=== PATIENT | female | born 1965 | race Asian ===

== ENCOUNTER 2017-07-22 10:24 | Inpatient (IN) | payer OTHER ==
[~2017-07-22] VITALS: Ht 160 cm; Wt 56.9 kg
[2017-07-22] VITALS (29 sets, daily range): BP systolic 76–102; BP diastolic 50–78; TEMP 98–98.1; Ht 160 cm; Wt 56.9 kg
--- NOTE | 2017-07-22 10:00 | NUR ---
REPORT RECEIVED FROM MARCIN HERNANDEZ LPN FROM [facility] [place] AT THIS TIME
--- NOTE | 2017-07-22 10:13 | NUR ---
PT ARRIVED TO ICU BED 3 VIA BED AT THIS TIME PER U STAFF. PT IS LETHARGIC AND DISORIENTED. PT IS ON 50% O2 PER VENTI MASK. RESPIRATIONS ARE RAPID. PT DOES NOT FOLLOW COMMANDS. LUNG SOUNDS ARE CLEAR THROUGHOUT ON THE RIGHT SIDE. CRACKLES ARE NOTED TO THE LEFT SIDE THROUGHOUT. IRREGULAR HEART SOUNDS ARE NOTED UPON AUSCULTATION. HEART RATE IS 133 PER SUPERVISOR WOUND. BOWEL SOUNDS ARE PRESENT IN ALL 4 QUADRANTS. THERE IS A 22G IV NOTED TO THE RAC. IV IS INTACT AND PATENT. IV DRESSING IS CLEAN, DRY, AND INTACT. THERE IS NO EDEMA NOTED TO THE BILATERAL LOWER EXTREMITIES. PEDAL PULSES ARE PRESENT AND EQUAL BILATERALLY. UPPER AND LOWER EXTREMETIES ARE COOL TO THE TOUCH. BED WAS LOCKED AND PLACED IN LOWEST POSITION WITH SIDE RAILS UP X3.
--- NOTE | 2017-07-22 10:20 | NUR ---
CONNOR DAVIS, RT AT BEDSIDE PLACING PT ON BIPAP AT THIS TIME. PT'S O2 SAT INCREASED TO 84% AT THIS TIME.
[~2017-07-22 10:24] MED LIST: BENZTROPINE0.5 MG PO; BENZTROPINE2 MG PO; BISACODYL5 M1 PO; CLON0.5T36 PO; DIPH12.521 PO; DIVA500T2 PO; HALO10TA5 PO; LEXAPRO20 MG PO; MAGNSUS68 PO; MEDR150I3 IM; MEGE40TA32 PO; NUDEXTA PO; RISP1TAB PO; RISP25IN IM; SENEXON-S1 TAB PO; SUCR1SUS PO
--- NOTE | 2017-07-22 10:27 | NUR ---
DR. SPANN AT BEDSIDE TO SEE PT.
--- NOTE | 2017-07-22 13:25 | NUR ---
IV FLUIDS STARTED. RESP RATE COMING DOWN 38 , 36 MIN SAT IMPROVED TO 92%. PT KEEPS PULLING AT MASK KEEP REMINDING HER TO LEAVE IT ON. MONITOR CLOSELT LABS DRAW. PT RECIEVED ANTIBOTICS
--- NOTE | 2017-07-22 14:09 | NUR ---
RECIEVED IV ANTIBOTICS CONTINUES TO RECIEVE IV BOLUS. HR 120 SAT 95% RESP 40, B/P 80/62 CONTINUE TO MONITOR CLOSELY. CONTINUES ON BIPAP
--- NOTE | 2017-07-22 15:11 | NUR ---
13F GARCÍA INSERTED AT THIS TIME X2 ATTEMPTS USING STERILE TECHNIQUE. BALLOON WITH 10 MLS OF NS. 160 CC'S OF JENA COLORED URINE NOTED TO GARCÍA BAG. SAMPLE COLLECTED AT THIS TIME AND TAKEN TO LAB. PT TOLERATED WELL. WILL CONTINUE TO MONITOR.
[2017-07-22] MEDS ORDERED: METAMUCIL0.52 GM OR (15:21)
[2017-07-22] MEDS ORDERED: PANTOPRAZOLE 40MG TA PO (15:21)
[2017-07-22] MEDS ORDERED: DOCU100C10 PO (15:26)
[2017-07-22] MEDS ORDERED: TYLENOL325 MG OR ×2 (15:28→15:30)
[2017-07-22] MEDS ORDERED: ALUMSUS6 PO (15:28)
[2017-07-22] MEDS ORDERED: LANTISEPTI2 EX (15:29)
[2017-07-22] MEDS ORDERED: OLAN10INJ IM (15:30)
--- NOTE | 2017-07-22 16:17 | NUR ---
PT RESTING QUIETLY WITH EYES CLOSED. NAD NOTED. PT RESPONDS TO PAINFUL STIMULI ONLY. BIPAP STILL IN USE AT THIS TIME. O2 SAT 94% AND RESPIRATORY RATE 32/MIN AT THIS TIME. WILL CONTINUE TO CLOSELY MONITOR.
--- NOTE | 2017-07-22 16:37 | NUR ---
APPEARS TO BE IMPROVING NOT PULLING AT MASK SO MUCH. RESTING EASIER WEARING BIPAP. SAT 95% HR DOWN TO 121, B/P 99/71. WILL RECHECK ABG.
--- NOTE | 2017-07-22 21:00 | NUR ---
RESP AT BEDSIDE, PT PULLING AT BIPAP SOME, ENCOURAGED NOT TO PULL MASK, PT DOES OPEN EYES BRIEFLY AND LOOK AT STAFF, NO DISTRESS NOTED, IV INTACT, GARCÍA PATENT, WILL MONITOR, RAILS UP, BED IN LOW POSITION.
[2017-07-23] VITALS (25 sets, daily range): BP systolic 75–112; BP diastolic 33–88; TEMP 97–99
--- NOTE | 2017-07-23 00:02 | NUR ---
RESTING WITH EYES CLOSED, NO DISTRESS NOTED, RESP RATE ELEVATED 32, IV INTACT, FEET ELEVATED ON PILLOW, BIPAP IN USE NOTE PT DOES AROUSE BRIEFLY AT TIMES AND PULL AT BIPAP, REASSURED PT AND ENCOURAGED NOT TO PULL AT BIPAP, WILL MONITOR, RAILS UP, BED IN LOW POSITION, GARCÍA PATENT DRAINING TO BEDSIDE WITH APPROX 150ML URINE NOTED.
--- NOTE | 2017-07-23 05:38 | NUR ---
RESTING WITH EYES CLOSED, NO S/S OF PAIN OR DISTRESS NOTED, RESP RATE 28, BIPAP 16/7 FIO2 100%, 14F GARCÍA PATENT DRAINING TO BEDSIDE, IV INTACT WITH FLUID ONGOING. RESP NOW AT BEDSIDE WITH ABG RESULTS. DECREASED FIO2 TO 50% AT THIS TIME. WILL CONTINUE TO MONITOR CLOSELY, RAILS UP X3, BED IN LOW POSITION. FEET ELEVATED ON PILLOW.
[2017-07-23 05:44] LABS: POTASSIUM 3.2 mmol/L (3.6-5.2)
[2017-07-23 06:29] LABS: PLATELET COUNT 116 K/uL (152-353)
--- NOTE | 2017-07-23 07:00 | NUR ---
PT RESTING QUIETLY ON BIPAP 16/7 & 50% O2. O2 SATS 94% GARCÍA TO BSD WITH MED YELL URINE 10 ML'S.
--- NOTE | 2017-07-23 09:48 | NUR ---
SHANKAR BRENNAN MACHINIST TOOL AND DIE IN TO SEE PT,REVIEWING LABS & CXR,PT RESTLESS.
--- NOTE | 2017-07-23 10:37 | NUR ---
PT RESTLESS & KICKING FEET,PULLING AT BIPAP MASK, PT CHANGED TO NC/3L/RESP.O2 SATS 94%,FACE BATHED,MOUTHCARE. PT FRETFUL & MUMBLING UNABLE TO VOICE NEEDS. TURNED & REPOSITIONED FOR COMFORT.
--- NOTE | 2017-07-23 11:00 | NUR ---
DR TEJADA IN WITH SHANKAR GONZALEZ CONCRETE CRAFTSMAN MAKING ROUNDS,ASSESSING PT.RR RATE 30 REMAINS SAME WHEN ON BIPAP.
--- NOTE | 2017-07-23 11:14 | NUR ---
PT CALM,RESTING WITH EYES CLOSED.
--- NOTE | 2017-07-23 14:21 | NUR ---
LABS CALLED TO SHANKAR GARCIA. NEW ORDERS.
--- NOTE | 2017-07-23 14:31 | NUR ---
PT VERY RESTLESS,MUMBLING & TWISTING & TURNING SELF IN BED,FRETFUL BUT UNABLE TO VOICE NEEDS, TRIED TO SIP SM AMT H2O,COUGHED AFTERWARD. SHANKAR GONZALEZ SHEET ROCK INSTALLATION HELPER NOTIFIED,NEW ORDERS,ATIVAN 0.5 MG SIVP.
--- NOTE | 2017-07-23 15:00 | NUR ---
PT RESTLESS,O2 SAT 89/90%.O2 INCREASED TO 4L/NC,RR RATE 30. PT CALMER.
--- NOTE | 2017-07-23 17:00 | NUR ---
RT IN TO SEE PT,NEBS & SMART VEST IN PROGRESS,O2 SATS 89/90%.PT PLACED BACK ON BIPAP 16/7& 50% O2.
--- NOTE | 2017-07-23 18:55 | NUR ---
URINARY OUTPUT [address] FELTON JAIN,NEW ORDERF TO INCREASE NS TO 125ML/HR.
--- NOTE | 2017-07-23 22:30 | NUR ---
PT REPOSITIONED IN BED. LINENS WERE STRAIGHTENED.
[2017-07-24] VITALS (24 sets, daily range): BP systolic 95–144; BP diastolic 55–88; TEMP 97–98.7
--- NOTE | 2017-07-24 03:25 | NUR ---
PT CONTINUES TO REST WITH EYES CLOSED. PT WEARING BIPAP ORDERED. GARCÍA CATH INTACT DRAINING YELLOW URINE. VITAL SIGNS STABLE.
--- NOTE | 2017-07-24 05:06 | NUR ---
PCXR WAS DONE.
[2017-07-24 06:31] LABS: PLATELET COUNT 116 K/uL (152-353)
[2017-07-24 06:40] LABS: POTASSIUM 2.6 mmol/L (3.6-5.2)
--- NOTE | 2017-07-24 08:30 | NUR ---
PT RESTING ON BIPAP SAT 97% NO ACUTE DISTRESS.
--- NOTE | 2017-07-24 10:00 | NUR ---
SHANKAR GONZALEZ VISITED RECIEVED ORDERS AM MEDS PULLED. WILL TRY CLEAR LIQUIDS. PT UP IN BED CONTINUES ON BIPAP.
--- NOTE | 2017-07-24 12:00 | NUR ---
PT OFF BIPAP, TRIED SIPS CLEAR LIQUIDS UNABLE TO SWALLOW. PO MEDS HELD AND RETURNED TO OMNICELL (UNOPENED). PT REPIN BED INC OF SMALL AMOUNT STOOL. WILL GIVE BATH HOB UP. HAD VISITOR FROM [place] [employer] THIS AM LEFT CONTACT INFO.
--- NOTE | 2017-07-24 14:39 | NUR ---
PLACED YANKAUER SUCTION AT BEDSIDE FOR SECRETIONS NEEDED. AM,WEB UI DEVELOPER
--- NOTE | 2017-07-24 14:39 | NUR ---
CONTINUE OFF BIPAP, HOB UP sAT 98% ON 4 L NC. HUMIDIFIED. PT NPO. PT TRYING TO COUGH, SOUNDS LIKE SHE MIGHT BE MOVING SOME SECRETIONS.
--- NOTE | 2017-07-24 14:47 | NUR ---
PT OFF BIPAP AT THIS TIME. SPO2 99% ON 5LPM VIA NC WITH HUMIDITY. NO RESPIRATORY DISTRESS NOTED. PATIENT IS AGITATED.
--- NOTE | 2017-07-24 15:10 | NUR ---
CONTINUES ON O2 AT 4L NC SAT 99% PT CRYING OUT AT TIMES, COARSE BREATH SOUND OCC. COUGH UNABLE TO COUGH ANYTHING UP. RECIEVED BREATHING TX.
--- NOTE | 2017-07-24 15:12 | NUR ---
DECREASED TO 4LPM POST TREATMENT. SPO2-98% HR 106
--- NOTE | 2017-07-24 16:30 | NUR ---
SAT 100% O2 TURN DOWN TO 3L NC. PT RECIEVED BED BATH BED CHANGE SKIN CARE APPEARS TO BE RESTING EASIER. NO CRYING OUT. IV FLUIDS CONTINUE ORDERED. ANTIBOTICS INFUSING ORDERED.
--- NOTE | 2017-07-24 16:31 | NUR ---
WEANED O2 TO 3LPM AT THIS TIME VIA NC. SPO2-100%,HR-86 PT RESTING ON LEFT SIDE AT THIS TIME. AM,STAFF WRITER
--- NOTE | 2017-07-24 18:22 | NUR ---
PT AWAKE CRYING OUT AT TIMES. DOES NOT APPEAR TO BE IN PAIN . CHECKED EARLIER IV FLUIDS UP TO 125 HR MONITOR URINE OUTPUT. VOIDED 325 ML TODAY. WILL MONITOR CLOSELY. REPOSITIONED IN BED.
--- NOTE | 2017-07-24 22:28 | NUR ---
1930- RECEIVED PT WITH HER EYES CLOSED, SHE CRIES AT TIMES, MOANS, WHICH IS REPORTEDLY HER USUAL BEHAVIOUR. HEAD TO TOE ASSSESMENT COMPLETE. PT REPOSITIONED IN BED TO HER RIGHT SIDE. PILLOW PLACED BETWEEN LOWER EXTREMITIES FOR SKIN INTEGRITY AND COMFORT. SH
--- NOTE | 2017-07-24 22:32 | NUR ---
2100-PT IS NPO, CANNOT SWALLOW AT THIS TIME, SO SOME OF SCHEDULED MEDS NOT GIVEN, SEE EMAR. IVF'S INFUSING WITHOUT DIFFICULTY. PT CONTINUES TO CRY OUT AT TIMES. NO DISTRESS NOTED. SHE DOES NOT LOOK TO BE IN PAIN, JUST ACTS RESTLESS. SH
--- NOTE | 2017-07-24 22:36 | NUR ---
2129- PT IS GETTING AGITATED, SHE HAS ON THE RESPIRATORY SMART VEST AND IS NOT LIKING IT AT ALL. SHE IS GETTING A BREATHING TX ALSO. ATIVAN 0.5 MG IV SLOW PUSH GIVEN. WILL RE-ASSESS PT FOR RELIEF OF ANXIETY AND REDUCTION OF HEART RATE WHICH IS 115 AT THIS TIME. ALSO, PT HAD A SMALL AMOUNT OF LIGHT BROWN, SOFT BM PRESENT. PT CLEANED, ADULT DIAPER PLACED AND REPOSITIONED. SH
--- NOTE | 2017-07-24 22:40 | NUR ---
2200 - PT IS MORE CALM, HAS ON HER BIPAP FOR THE NIGHT. NO DISTRESS NOTED. HR HAS DECREASED TO 103. SH
--- NOTE | 2017-07-24 22:41 | NUR ---
2235-HR IS 94,95/MIN. GARCÍA HAS SLIGHTLY DARK URINE PRESENT, IN TUBING IT IS CLOUDY. IN THE LAST HOUR, SHE PUT OUT 36 CC OF URINE. SH
--- NOTE | 2017-07-24 23:55 | NUR ---
2355- PT RESTLESS, ATIVAN 0.5 MG IV SLOW PUSH GIVEN. 8 CC OF URINE MEASURED FOR THE HOUR. SH
[2017-07-25] VITALS (16 sets, daily range): BP systolic 94–149; BP diastolic 50–90; TEMP 97.5–98.6
--- NOTE | 2017-07-25 02:22 | NUR ---
0100-PT HAS BEEN CALM AND IS SLEEPING SINCE ADMIN OF LAST ATIVAN 0.5 MG IV, ABOUT AN HOUR AGO. PT'S URINE OUTPUT CONTINUES TO BE VERY SLOW, BUT HAS BEEN LOW PER REPORT FROM DAYSHIFT. AWARE. SH
--- NOTE | 2017-07-25 02:25 | NUR ---
0200 NO DISTRESS NOTED. PT CONTINUES TO SLEEP WELL WITH BIPAP ON. SH
--- NOTE | 2017-07-25 03:40 | NUR ---
0340- PT CONTINUES SLEEPING PEACEFULLY WHILE ON BIPAP, SHE SATS 100 %, HR IS 83, BP 113/61. R-32/MIN AT THIS TIME. URINE OUT PUT ONLY CC FOR THIS PAST HOUR. SH
--- NOTE | 2017-07-25 04:25 | NUR ---
0425- PT'S HR DOWN TO 81. SHE IS SLEEPING WELL, NO CHANGES NOTED. CONT. TO WEAR BIPAP. SH.
[2017-07-25 05:31] LABS: PLATELET COUNT 104 K/uL (152-353)
--- NOTE | 2017-07-25 05:51 | NUR ---
0550 - PT RESTLESS, ATIVAN 0.5 MG IV SLOW PUSH GIVEN. PT TOLERATES WELL. NO BM NOTES IN ADULT DIAPER. PT PUTTING OUT MORE URINE AT THIS TIME. GARCÍA BAG EMPTIED, ALL TOGETHER 250 CC OUT. PT HAS BEEN SHOWING SATS OF 99 AND 100 %. MORTGAGE LOAN ORIGINATOR WILL CONTINUE TO MONITOR. SH.
--- NOTE | 2017-07-25 06:33 | NUR ---
0635-PT IS CALM AND SLEEPING AT THIS TIME. RESPIRATORY CAME A LITTLE EARLIER, OBTAINED AN ABG AND EXCHANGED PTS BIPAP FOR HER NC AT 3 LM. ALSO, PT HAD A CHEST XRAY EARLIER. SHE TOLERATED EACH, WELL. NO DISTRESS NOTED AT THIS TIME. SH
[2017-07-25 06:50] LABS: POTASSIUM 2.6 mmol/L (3.6-5.2)
--- NOTE | 2017-07-25 08:15 | NUR ---
RESPIRATORY AT BEDSIDE.
--- NOTE | 2017-07-25 08:25 | NUR ---
DR. TEJADA HERE TO EXAMINE PATIENT. NEW ORDERS RECEIVED.
--- NOTE | 2017-07-25 09:00 | NUR ---
RECIEVD ORDERS PHONE CALL TO PERLA MILA [phone] TO GET CONSENT FOR TX. RECIEVED NAME AND NUMBER OF SHANDRA QUICK PT'S LEGAL GUARDIAN FOR THE STATE.
--- NOTE | 2017-07-25 09:15 | NUR ---
CALLED TO MRS QUICK REPORT PT CONDITION AND NEW ORDERS. WILL NEED TO GET STATEMENT/ INFORMATION NEEDED FOR MEDICAL TREATMENT/PROCEDURE MEDICAL CONSENT SIGNED BY TWO PHYSICIANS. NOEMI FROM OR ASSIST WITH GETTING CONSENT.
--- NOTE | 2017-07-25 11:45 | NUR ---
HAD TO HAVE CONSENT FORM FAXED TO HOSPITAL. FOUR COPIES NEEDED TO BE FILLED OUT WITH DR HERNANDEZ AND DR TEJADA SIGNING. FORMS SENT BACK TO MRS QUICK. WAITING TO RECIEVE CONSENT. PT TURNED AND REPOSITIONED IN BED CRYING OUT. HOB UP. RESP HERE PT RECIEVED BREATHING TX. PT COUGHING NON PRODUCTIVE COUGH. UNABLE TO BRING UP SECRETIONS. SUCTION TO MOUTH. REMOVED THICK PHLEM. ATTEMPT TO START SECOND IV UNSUCCESSFUL AT THIS TIME. WILL TRY WHEN PT A LITTLE MORE CALM.
--- NOTE | 2017-07-25 12:00 | NUR ---
CRYING OUT RESTLESS RECIEVED ATIVAN 0.5 IVP ORDERED.
--- NOTE | 2017-07-25 13:00 | NUR ---
REPORT URINE OUTPUT TO SHANKAR GONZALEZ PEDIATRIC INTENSIVE PHYSICIAN. CALLED TO OR SPOKE WITH NOEMI WAITING TO GET CONSENT FROM MRS QUICK. MRS QUICK CALLED BACK AND SPOKE WITH NOEMI. HAVE NOT RECIEVED CONSENT YET. RESP DEPT HERE PLACED PT ON SHAKEY VEST, CRYING OUT RESTLESS. REPOSITIONED IN BED.
--- NOTE | 2017-07-25 14:15 | NUR ---
SHANKAR GONZALEZ LAB PACK CHEMIST HERE TO CHECK PT STATUS. PT CONTINUES CRYING OUT. RECIEVED ORDERS. PT ASSISTED WITH BATH. NOTED PT TRYING TO HAVE BM. TRIES TO PUSH STOOL OUT. ASSISTED BY YENI DALEY RN CHECKED FOR IMPACTION. PT CONSTIPATED REMOVED SMALL AMOUT HARD BALLS. EXPLAINED PROCEDURE TO PT. PT CRYING OUT. PT RECIEVED FLEETS ENEMA, FINISHED BATH. RECIEVED LASIX AND ATIVAN 0.5 MG FOR AGITATION. RECIEVED CALL FROM NOEMI IN OR. HAVE NOT HEARD FROM MRS QUICK, STILL WAITING CONSENT.
--- NOTE | 2017-07-25 15:30 | NUR ---
RESPIRATORY AT BEDSIDE TO PLACE PATIENT ON BIPAP. BIPAP NOT TOLERATED WELL. RESPIRATORY RATE INCREASED TO 60. AND HEART RATE INCREASED TO 114-120. BIPAP REMOVED AND PATIENT RETURNED TO O2 @ 3L VIA NC. RESPIRATORY RATE THEN DECREASED TO 46. JOSE DEL CID NOTIFIED. NEW ORDERS GIVEN FOR ATIVAN 1MG X1 DOSE NOW AND STAT ABG.
--- NOTE | 2017-07-25 16:00 | NUR ---
SHANKAR GONZALEZ, ASSISTANT STATISTICIAN AT BEDSIDE TO ASSESS PATIENT STATUS. ABG REPORTED. ORDERS GIVEN TO INCREASE O2 TO 4L. CURRENT O2 SAT IS 98%
--- NOTE | 2017-07-25 16:02 | NUR ---
ABG OBTAINED PER JOSE POLK. VERBAL ORDER GIVEN TO GO UP TO 4LPM POST ABG RESULTS FROM JOSE PLOK. SPO2-97% HR-105
--- NOTE | 2017-07-25 16:50 | NUR ---
PT APPEARS TO BE RESTING EASIER. SAT 100% ON 4L NC. NOT CRYING OUT, MOANING MUCH. IV FLUIDS CONTINUE ORDERED. LASIX EFFECTIVE VOIDING LARGE AMOUNTS. HOB UP.
--- NOTE | 2017-07-25 17:58 | NUR ---
MRS QUICK CALLED BACK REPORT THAT SHE NEEDS SECOND SIGNATURE ON MEDICAL CONSENT FORM FOR CTA OF CHEST. WENT TO ER TO REVIEW WITH DR SPANN. DR SPANN AT MEDICAL STAFF MEETING. WILL CALL BACK AND SEND CONSENT WHEN SIGNATURE OBTAINED.
--- NOTE | 2017-07-25 18:31 | NUR ---
CONSENT SIGNED BY DR SPANN EMAILED TO [facility].
--- NOTE | 2017-07-25 18:32 | NUR ---
PT APPEARS TO BE RESTING MUCH EASIER. REPORT TO ONCOMING SHIFT.
--- NOTE | 2017-07-25 20:10 | NUR ---
PT RESTING WITH EYES CLOSED, NO S/S OF PAIN OR DISTRESS NOTED, IV INTACT TO R FA WITH NO PROBLEMS NOTED TO SITE, GARCÍA PATENT DRAINING TO BEDSIDE, RESP RATE NONLABORED, WILL MONITOR, RAILS UP X3, BED IN LOW POSITION.
--- NOTE | 2017-07-25 22:32 | NUR ---
PT'S O2 SAT STAYING AT 87-89% ON NC AT 4LPM, RESPIRATORY NOTIFIED AND PT PUT ON VENTI MASK WITH FIO2 OF 50%. O2 SAT NOW 92%. IV INTACT TO R FA, GARCÍA PATENT DRAINING TO BEDSIDE, FEET ELEVATED ON PILLOW, RESP RATE NONLABORED BUT REMAINS FAST. WILL CONTINUE TO MONITOR CLOSELY, RAILS UP X3, BED IN LOW POSITION, HOB REMAINS ELEVATED.
[2017-07-26] VITALS (21 sets, daily range): BP systolic 93–157; BP diastolic 55–95; TEMP 97.5–99
--- NOTE | 2017-07-26 01:16 | NUR ---
PT SUCTIONED WITH YANKAUER, NOTE THICK YELLOW SPUTUM. MOUTH CARE COMPLETED AND LIPS MOISTURIZED, FEET ELEVATED ON PILLOW, HOB REMAINS ELEVATED, IV INTACT WITH FLUID ONGOING, RESP RATE NONLABORED, COUGH NOTED, GARCÍA PATENT DRAINING TO BEDSIDE, REPOSITIONED, WILL MONITOR, RAILS UP, BED IN LOW POSITION.
--- NOTE | 2017-07-26 04:00 | NUR ---
PT AWAKE BUT HAS EYES CLOSED, SEEMS RESTLESS AND FROWNS AT TIMES, MOVING LEGS AND ARMS AROUND, MOANING/CRYING OUT. WILL OBTAIN ORDER FOR SOMETHING FOR PAIN SINCE PT IS NPO AND CAN NOT TAKE HER PO MEDS FOR PAIN. 22G IV INTACT WITH FLUID ONGOING TO R FA, VENTI MASK IN USE, GARCÍA PATENT DRAINING TO BEDSIDE, FEET ELEVATED ON PILLOW, PT REPOSITIONED TO L SIDE, WILL MONITOR, RAILS UP X3, BED IN LOW POSITION.
--- NOTE | 2017-07-26 04:14 | NUR ---
NEW ORDER FOR TYLENOL 650MG RECTAL X 1 DOSE FOR PAIN. T.O. R&V DR. SPANN/CELINE BLANCA RN.
--- NOTE | 2017-07-26 05:04 | NUR ---
PT RESTING QUIETLY WITH EYES CLOSED, NO S/S OF PAIN OR DISTRESS NOTED, 22G IV INTACT TO R FA WITH D5 ONGOING AND 20G IV LOCK INTACT TO L WRIST, GARCÍA PATENT DRAINING TO BEDSIDE, RESP RATE NONLABORED, VENTI MASK IN USE, VITALS BEING MONITORED, WEIGHT TESTER IN USE, WILL MONITOR, RAILS UP X3, BED IN LOW POSITION.
[2017-07-26 05:06] LABS: PLATELET COUNT 92 K/uL (152-353)
[2017-07-26 05:15] LABS: POTASSIUM 2.9 mmol/L (3.6-5.2)
--- NOTE | 2017-07-26 06:00 | NUR ---
RESTING WITH EYES CLOSED, NO S/S OF PAIN OR DISTRESS NOTED, BOTH IV SITES INTACT, VENTI MASK IN USE, GARCÍA PATENT, FEET ELEVATED ON PILLOW, WILL MONITOR, RAILS UP, BED IN LOW POSITION.
--- NOTE | 2017-07-26 06:25 | NUR ---
MOUTH CARE COMPLETED, LIPS MOISTURIZED.
--- NOTE | 2017-07-26 08:30 | NUR ---
DR. TEJADA AND SHANKAR GONZALEZ, STOCKROOM ASSOCIATE AT BEDSIDE TO ASSESS PATIENT. UPDATE WAS GIVEN AND PATIENT LABS DISCUSSED. WE ARE WAITING ON RESPONSE FROM PATIENTS GUARDIAN IN ORDER TO PROCEED WITH BROCHOSCOPY AND CT SCAN.
--- NOTE | 2017-07-26 08:56 | NUR ---
RESPIRATORY AT BEDSIDE. PATIENT PLACED ON SMART VEST.
--- NOTE | 2017-07-26 10:00 | NUR ---
PT ALLOWED NURSE TO SUCTION BACK OF THROAT W/O BITING KAMALJIT
--- NOTE | 2017-07-26 10:13 | NUR ---
CALLED SHANDRA QUICK, LEGAL GUARDIAN, TO FOLLOW UP ON APPROVAL STATUS FOR REQUESTED CT SCANS (BRAIN AND CHEST) AND BRONCHOSCOPY. MARINE STEAM FITTER, JOANNE AMBROSIO, WAS CALLED INSTRUCTED. VOICE MAIL WAS LEFT WITH CONACT INFORMATION.
--- NOTE | 2017-07-26 10:33 | NUR ---
PT ATTEMPTING TO SCOOT DOWN IN BED.
--- NOTE | 2017-07-26 10:45 | NUR ---
BATH GIVEN AND LINEN CHANGED. POSITIONED ON BACK.
--- NOTE | 2017-07-26 11:10 | NUR ---
SHANDRA ABDELRAHMAN, LEGAL GUARDIAN WITH THE [facility], CALLED WITH APPROVAL FOR BRONCHOSCOPY, CT BRAIN W/O AND CTA CHEST W/ CONTRAST. ABDIEL ARECHIGA RN AND MYSELF WITNESSED VERBAL CONSENT.
--- NOTE | 2017-07-26 11:42 | NUR ---
RIGHT EYE 3MM AND SLUGGISH. STILL GAZING SOMEWHAT TO THE RIGHT.
--- NOTE | 2017-07-26 12:00 | NUR ---
RESPIRATORY AT BEDSIDE. BREATHING TREATMENT GIVEN AND PATIENT SUCTIONED.
--- NOTE | 2017-07-26 12:40 | NUR ---
PT TAKEN TO CT. NURSE AT BS
--- NOTE | 2017-07-26 12:55 | NUR ---
RETURNED FROM CT.
--- NOTE | 2017-07-26 13:00 | NUR ---
ELVIS DALEY CRNA IN ICU. PT WAS BEING RECONNECTED TO MONITORING LINES. ADVISED HIM THAT AN ATTEMPT HAD BEEN MADE TO CALL OR ONCE PT RETURNED TO ICU JUST MINS PRIOR
--- NOTE | 2017-07-26 13:39 | NUR ---
ELVIS DALEY CRNA AND NOEMI RN/OR HERE TO TAKE PATIENT TO OR FOR BRONCHOSCOPY.
--- NOTE | 2017-07-26 14:33 | NUR ---
RETURNED FROM OR VIA BED. NASAL TRUMPET AND NG TUBE IN PLACE. CHEST XRAY ORDERED BY OR STAFF.
--- NOTE | 2017-07-26 16:15 | NUR ---
RESPIRATORY AT BEDSIDE. CHANGED PATIENT FROM SIMPLE MASK TO NC. TOLERATING WELL O2 SAT 98-100%
--- NOTE | 2017-07-26 16:35 | NUR ---
XRAY AT BEDSIDE TO VERIFY PLACEMENT OF NG TUBE.
--- NOTE | 2017-07-26 17:44 | NUR ---
CHECKED PLACEMENT OF NG TUBE. PLACEMENT VERIFIED. 60ML WATER FLUSH GIVEN. MEDS WERE CRUCHED AND GIVEN VIA NG TUBE. 120ML 2CAL GIVEN. (DIETARY RECOMMENDED NEPRO-WILL INFORM MD OF DIETARY RECOMMENDATIONS) 60ML FLUSH AFTER FEEDING WAS COMPLETED. HEAD OF BED ELEVATED. NO COUGHING NOTED. PATIENT RESTING QUIETLY AND TOLERATED FEED WELL.
--- NOTE | 2017-07-26 18:29 | NUR ---
NBA HOSE PLACED ON BLE. CALF MEASURED AT 10.5 INCHES
--- NOTE | 2017-07-26 20:50 | NUR ---
NG TUBE PLACEMENT CHECKED. FLUSHED WITH 60ML WATER, ADX MEDICATIONS CRUSHED VIA NG TUBE, FLUSHED AFTER WITH 60ML WATER. TOLERATED WITH NO PROBLEMS. HOB REMAINS ELEVATED, WILL MONITOR CLOSELY.
--- NOTE | 2017-07-26 21:00 | NUR ---
TRYING PT OFF OF BIPAP TONIGHT TO SEE HOW SHE TOLERATES IT. PT IS DOING WELL AT THIS TIME ON 3LPM VIA NC. BIPAP AT BEDSIDE FOR PRN USE. AM,INCIDENT HANDLER
--- NOTE | 2017-07-26 22:00 | NUR ---
PT LAYING WITH EYES CLOSED BUT IS AWAKE, APPEARS UPSET/SCARED AT TIMES AND CRYING OUT. REASSURED PT, PT OPENS EYES TO STAFF CALLING HER NAME OR TOUCHING HER AT TIMES. IV SITES INTACT, RESP RATE NONLABORED BUT ELEVATED(HAS BEEN THIS WAY FOR SEVERAL DAYS), O2 AT 3LPM VIA NC, GARCÍA PATENT, DEPEND DRY, SCDs IN USE, NG TUBE INTACT TO L NARE WITH NO PROBLEMS NOTED. REPOSITIONED AND FEET ELEVATED ON PILLOW, WILL MONITOR, RAILS UP, BED IN LOW POSITION.
[2017-07-27] VITALS (24 sets, daily range): BP systolic 110–148; BP diastolic 63–88; TEMP 98–100
--- NOTE | 2017-07-27 00:08 | NUR ---
PT RESTING WITH EYES CLOSED AND NO S/S OF DISTRESS NOTED, GARCÍA PATENT DRAINING TO BEDSIDE, SCDs IN USE, O2 AT 3LPM VIA NC, RESP RATE NONLABORED, DEPEND DRY, BOTH IV SITES INTACT WITH FLUID ONGOING, NG TUBE INTACT TO L NARE, REPOSITIONED TO BACK WITH FEET ELEVATED ON PILLOW, PT APPEARS TO GET AGITATED WHEN REPOSITIONED, FROWNS AND MOANS OUT. REASSURED PT. NOW RESTING AGAIN WITH EYES CLOSED. WILL MONITOR, RAILS UP X3, BED IN LOW POSITION.
--- NOTE | 2017-07-27 02:25 | NUR ---
CONTINUES TO REST WITH EYES CLOSED, NO DISTRESS NOTED, IV SITES INTACT, O2 AT 3LPM VIA NC, RESP RATE NONLABORED BUT CONTINUES TO BE FAST 28-32, GARCÍA PATENT, SCDs IN USE, REPOSITIONED TO L SIDE WITH PILLOW BETWEEN LEGS, NG TUBE INTACT TO L NARE, MOUTH CARE PROVIDED AND LIPS MOISTURIZED. WILL CONTINUE TO MONITOR, RAILS UP X3, BED IN LOW POSITION.
--- NOTE | 2017-07-27 04:30 | NUR ---
RESTING WITH EYES CLOSED, NO S/S OF PAIN OR DISTRESS NOTED, BOTH IV SITES INTACT AND FLUID ONGOING, RESP RATE NONLABORED, O2 AT 3LPM VIA NC, GARCÍA PATENT, SCDs IN USE, NG TUBE INTACT L NARE, FEET ELEVATED ON PILLOW, REPOSITIONED TO BACK WITH HOB ELEVATED, WILL MONITOR, RAILS UP X3, BED IN LOW POSITION.
--- NOTE | 2017-07-27 06:00 | NUR ---
RESTING WITH EYES CLOSED, NO S/S OF PAIN OR DISTRESS NOTED, IV SITES INTACT, NG TUBE INTACT, GARCÍA PATENT, RESP RATE NONLABORED, O2 IN USE, FEET ELEVATED ON PILLOW, WILL MONITOR, RAILS UP, BED IN LOW POSITION.
[2017-07-27 06:24] LABS: PLATELET COUNT 63 K/uL (152-353)
--- NOTE | 2017-07-27 08:00 | NUR ---
PATIENT RESTING WITH EYES CLOSED; PATIENT MOANS AND CRIES OUT WHEN TOUCHED. PATIENT HAS NG TUBE DOWN LEFT NARE, NBA HOSE ON, 20 G L AC. AND 20 G L WRIST BOTH PATENT, FLUSHING, AND FREE OF REDNESS, SIDE RAILS UP X2, HOB ELEVATED, WILL CONTINUE TO MONITOR PATIENT, NO ACUTE DISTRESS NOTED AT THIS TIME
--- NOTE | 2017-07-27 09:25 | NUR ---
DR. LAND AT PATIENTS BEDSIDE EKG ORDERED
--- NOTE | 2017-07-27 11:30 | NUR ---
INSTILLED 60 MLS OF 2 TAMI INTO NASOGASTRIC TUBE.
--- NOTE | 2017-07-27 11:41 | NUR ---
VENTIPUNCTURE ATTEMPTED X3 FOR LABS THIRD ATTEMPT SUCCESSFUL FOR LAB DRAW
--- NOTE | 2017-07-27 15:05 | NUR ---
PATIENT CRYING OUTLOUD, RESPIRATORY THERAPY AT PATIENTS BEDSIDE FOR TREATMENTS
--- NOTE | 2017-07-27 15:55 | NUR ---
CALLED AND SPOKE TO DR. CHONG ABOUT PATIENTS X RAY REPORT. PATIENT IS USING ACCESSORY MUSCLES TO BREATHE, OXYGEN SATURATION AT 86%, ORDERED TO PUT PATIENT ON VENTI MASK AT 20% WILL CONTINUE TO MONITOR PATIENT
--- NOTE | 2017-07-27 16:20 | NUR ---
PATIENT SUCTIONED RESPIRATORY THERAPY AT PATIENTS BEDSIDE
--- NOTE | 2017-07-27 18:50 | NUR ---
DR LAND AT BEDSIDE WITH NEW ORDERS
--- NOTE | 2017-07-27 18:52 | NUR ---
RESPIRATORY DEEP SUCTIONED X 2.
[2017-07-27 20:49] LABS: PLATELET COUNT 64 K/uL (152-353)
[2017-07-27 20:55] LABS: POTASSIUM 3.8 mmol/L (3.6-5.2)
[2017-07-28] VITALS (23 sets, daily range): BP systolic 94–152; BP diastolic 50–89; TEMP 97.5–99
--- NOTE | 2017-07-28 03:47 | NUR ---
0 - BREAD BAKER BEGINS SHIFT WITH REPORT, FROM ADAM HIDALGO. PT MOANS WHEN BEING TOUCHED BY CAREGIVERS AND CRIES OUT, WHICH THE CRYING OUT IS SUPPOSEDLY HER NORMAL. SHE STOPS CRYING OUT WHEN LEFT ALONE. ASSESSMENT COMPLETE BY BREAD BAKER, PTS LUNGS SOUND VERY CONGESTED, THAT IS VERY AUDIBLED WITH AND WITHOUT STETHOSCOPE. SH
--- NOTE | 2017-07-28 04:01 | NUR ---
[id number] PTS NGT ASSESSED FOR PLACEMENT, MEDS GIVEN VIA NGT WITHOUT DIFFICULTY. HOB REMAINS UP DURING AND AFTER MEDS GIVEN. KAYLIE FROM LAB OBTAINED PTS LABS VIA VEINIPUNCTURE.SH
--- NOTE | 2017-07-28 04:04 | NUR ---
07-27-17 2230- PT IS RESTLESS AFTER MEDS GIVEN, RESP. TX'S, BEING REPOSITIONED, NO DISTRESS NOTED AT THIS TIME. NURSE LEFT HER UNCOVERED EARLIER DUE TO A TEMP OF 100.0 . SHE COOLED TO 99.0 . WILL MONITOR. SH
--- NOTE | 2017-07-28 04:09 | NUR ---
07-28-17 0000 PT BLOOD SUGARS HAVE BEEN: AT 2322 - 97,,,AT 0030,,,94,,,AT [phone]. CODING COORDINATOR WILL MONITOR. PT HAS BEEN UNABLE TO TOLERATE ANY 2 TAMI NGT FEEDING, DUE TO SOME RESIDUAL OF ABOUT 25 CC AND HER MEDS BEING GIVEN EARLIER. ALSO, PTS LAC IV IS LEAKING, WHICH HAS THE D5W INFUSING. NO GOOD IV SITE FOUND TO PLACE A NEW ONE. D5W CHANGED TO EXISTING SITE ON LEFT INNER WRIST AREA. IT FLUSHES WELL AND IS INFUSING WITHOUT PROBLEMS. WILL MONITOR. SH
--- NOTE | 2017-07-28 04:18 | NUR ---
07-28-17 0015 MEDICARE NURSE SPEAKS WITH ER / HOSPITALIST, DR. CHONG ABOUT PT NEEDING SOMETHING FOR POSSIBLE PAIN, HER RESPIRATIONS HAVE INCREASED TO 5O - 52 / MIN. RESPIRATORY HERE TO PLACE PT ON BI-PAP FROM [facility] ( 20 %). NEW MD ORDERS FOR PAIN MEDS, N & V MEDS, SEE E-MAR. ( DR. CHONG DID VISIT PT EARLIER AT BEDSIDE, SHE WAS CALM AND SLEEPING). SH
--- NOTE | 2017-07-28 04:25 | NUR ---
07-28-17129 PT HAS BEEN RESTING WELL SINCE DEMEROL AND ATIVAN GIVEN. SHE HAS BEEN CALM, HR HAS DECREASED AND BREATHING IS NOT LABORED. NOT MUCH RATTLING NOTED AT THIS TIME. SH.
--- NOTE | 2017-07-28 04:28 | NUR ---
2-24-18 2777 NOT MUCH RATTLING NOTED, PT IS CALM AND SLEEPING. SH
--- NOTE | 2017-07-28 04:35 | NUR ---
07-28-17 0430 PT IS QUIETLY SLEEING , RESP CONT TO BE ELEVATED AT 44-48/ MIN WITH ABDOMINAL MUSCLE USE. HER SPO2 IS 93 % WITH BI-PAP IN PLACE. RESPIRATORY VISITS TO CHECK ON PT REGULARLY. SH
--- NOTE | 2017-07-28 05:43 | NUR ---
I GETACHEW BLOOD GAS ON PT. AT 0510 AND MADE CHANGES TO BIPAP SETTINGS PER BLOOD GAS RESULTS. PH WAS 7.45, PCO2 WAS 48, AND PO2 WAS 49. SO I WENT FROM 16/7 FIO2 50% TO 18/8 60% AT THIS TIME.
[2017-07-28 06:16] LABS: PLATELET COUNT 60 K/uL (152-353)
[2017-07-28 06:18] LABS: POTASSIUM 4.4 mmol/L (3.6-5.2)
--- NOTE | 2017-07-28 06:42 | NUR ---
0600 - PT CONTINUES TO REST WELL SINCE HER ADMIN OF ATIVAN 0.5 MG IV SLOW PUSH AT 0500 AM. HIGH LIFT MULE OPERATOR IS WITHOLDING THE 0600 DOSE AT THIS TIME. PT IS BREATHING WITHOUT MUCH EFFORT. SHE CONTINUES USING HER ABDOMINAL MUSCLES AND SHE CONT ON THE BIPAP WITH NEW SETTINGS OF 18/8 AND 60 AFTER RESPIRATORY OBTAINED ABG RESULTS THIS AM. LABS DRAWN, RESULTS PENDING AT THIS TIME. SH
--- NOTE | 2017-07-28 07:20 | NUR ---
DR LAND IN TO SEE PT. RATE ON BIPAP INCREASED TO 20 PER RT/DR BOSS ORDER. NEW ORDERS.
--- NOTE | 2017-07-28 08:08 | NUR ---
MESSAGE LEFT FOR SHANDRA QUICK GUARDIAN WITH THE STATE TO CALL ME ABOUT CENTRAL LINE PLACEMENT. PT RESTING ,FRETFUL WHEN TOUCHED OR MOVED.GARCÍA TO BSD WITH CL YELLOW URINE.
--- NOTE | 2017-07-28 08:54 | NUR ---
CHRISTIANA QUICK CALLED BACK,REQUESTED THAT I CALL MS CARTER GONZALES FOR IMMEDIARE CONSENT IF NEEDED. RT IN AT [facility] [place] & SMART VEST. DONOHUE CHANGED TO 28/KATINA BAZZI RN.PT'S RR RATE 30-32.
--- NOTE | 2017-07-28 09:15 | NUR ---
PT FED 1 CAN 2CAL,PROTEINEX 1 BOTTLE.FLUSHED WITH H2O PER PROTOCOL.
--- NOTE | 2017-07-28 09:30 | NUR ---
IV 22G INSERTED R H X 1 STICK.
--- NOTE | 2017-07-28 10:16 | NUR ---
PHONE CALL TO JOANNE GONZALES RN/CARD MAKER. DISCUSSED DR BOSS ORDER FOR CONSULT FOR CENTRAL LINE. WILL NEED TO FILL OUT STATEMENT/INFORMATION NEEDED FOR RECOMMENDED TX/PROCEDURE & FAX BACK TO HER.
--- NOTE | 2017-07-28 10:16 | NUR ---
MESSAGE LEFT FOR CALLUM ESQUIVELWORKER TO CALL ME.
--- NOTE | 2017-07-28 10:38 | NUR ---
DR SPANN WITH BOWEN BROWN ASSISTANT WOMEN'S BASKETBALL COACH/BERNABE IN TO SEE PT.
--- NOTE | 2017-07-28 10:57 | NUR ---
PHONE CALL TO MS JOANNE GONZALES R/T CENTRAL LINE INSERTION. DR SPANN TO 'HOLD OFF ON CENTRAL LINE PLACEMENT FOR NOW'.
--- NOTE | 2017-07-28 11:11 | NUR ---
ABG RESULTS CALLED TO DR HALLIE SPANN.NO NEW ORDERS AT THIS TIME.
--- NOTE | 2017-07-28 11:18 | NUR ---
PRELIM RESP CULTURE CALLED TO DR SPANN,NEW ORDERS.
--- NOTE | 2017-07-28 12:30 | NUR ---
PT RESTING WITH EYES CLOSED.
--- NOTE | 2017-07-28 14:30 | NUR ---
LARGE LOOSE BM,PERICARE BATH,LINEN CHANGE, MOUTH CARE.
--- NOTE | 2017-07-28 16:30 | NUR ---
RESTING WITH EYES CLOSED.
--- NOTE | 2017-07-28 18:32 | NUR ---
PT WITH 275ML OUTPUT URINE.DR SPANN NOTIFIED. NEW ORDERS.
[2017-07-29] VITALS (23 sets, daily range): BP systolic 94–146; BP diastolic 51–82; TEMP 97.7–98.2
--- NOTE | 2017-07-29 00:08 | NUR ---
REPORTED TO DR. SPANN PT'S URINE OUTPUT OF 345 CC .
--- NOTE | 2017-07-29 01:39 | NUR ---
PT INCONTINENT OF BM. LARGE YELLOW LOOSE STOOL. PT WAS CLEANED AND LINENS WERE CHANGED. NO SKIN BREAKDOWN NOTED. REPOSITIONED PT TO HER RIGHT SIDE.
--- NOTE | 2017-07-29 05:13 | NUR ---
LAB AND RESP AT BEDSIDE FOR AM LABS. ABG.
--- NOTE | 2017-07-29 05:18 | NUR ---
07-28-171999 PT ASSESSMENT COMPLETE NO DISTRESS NOTED. IVF'S INFUSING INTO RIGHT HAND WITHOUT DIFFICULTY. PT IS ON BI PAP WITH SETTINGS OF 18/8 , 60 %02, 28 RR, AND 28-32 IS WHAT PT IS BREATHING. GARCÍA TO BSD CONT WITH SMALL AMT OF JENA URINE, 10 CC PRESENT. MD AWARE OF SCANT URINE OUTPUT. WILL CONT TO MONITOR PT AND REPOSITION. [id number] PT NGT TO LEFT NARES PLACEMENT CHECKED/VERIFIED. ABOUT 15 CC OF YELLOWISH, THIN RESIDUAL NOTED. NURSE ABLE TO ADMINISTER MEDS VIA NGT WITHOUT PROBLEM. PT HOB UP AND NO DISTRESS NOTED. FINGER STICK FOR BLOOD SUGAR WAS 202 JUST EARLIER, AND REGULAR INSULIN 4 UNITS SS COVERAGE PROVIDED TO RIGHT ARM SQ. PT TOLERATED ALL WELL.
--- NOTE | 2017-07-29 05:38 | NUR ---
07-28-17 2200 PT CONT TO HAVE INCREASED URINE OUTPUT AFTER LASIX ADMIN EARLIER. COLOR IS RECORDING CLERK THAN IT HAS BEEN AT BEGINNNING OF SHIFT. SHE DOES ATTEMPT TO OPEN HER EYES AT TIMES, CLOSES THEM AGAIN VERY QUICKLY. SH
--- NOTE | 2017-07-29 05:48 | NUR ---
07-29-17 0300 PT CONT TO SLEEP, HR 80'S, NSR NOTED ON MONITOR. SH 07-29-17 0545RESPIRATORY AT PTS SIDE TO OBTAIN AN ABG. PT GIVEN PRN DOSE OF ATIVAN PRIOR TO STICK. SHE TOLERATED WELL AFTER A COUPLE OF ATTEMPS TO OBTAIN BLOOD GAS. LAB PERSONNEL IN JUST EARLIER TO DRAW AM LABS. NURSE WILL HOLD ATIVAN SCHEDULED DOSE FOR 0600 SINCE SHE JUST HAD THE PRN DOSE. PT IS CALM DOING WELL. SH
--- NOTE | 2017-07-29 07:04 | NUR ---
07-29-17 0600 PT CLEANED AFTER THIRD BM, YELLOWISH BROWN, LOOSE. PT REPOSITIONED TO RIGHT SIDE FOR COMFORT AND INCREASED SKIN INTEGRITY. NO WOUNDS OR SORES NOTED.. NBA HOSE ON PT, HEELS FLOATING ON A PILLOW. PT HAS NOT OPENED EYES TONIGHT EXCEPT FOR A SECOND, THEN, CLOSES AGAIN. SHE ALSO STILL DOES NOT MOVE ANY/RESPOND TO PAIN, WHEN SHE HAS HAD LABS AND ABG'S DRAWN. SHE DOES MOAN OUT. PT IS RESTING QUIETLY AT THIS TIME. NO DISTRESS NOTED. SH
[2017-07-29 08:25] LABS: PLATELET COUNT 74 K/uL (152-353)
--- NOTE | 2017-07-29 08:45 | NUR ---
BOWEN BROWN LPN/BERNABE FOR DR HANANE JAIN IN TO CK ON PT. DISCUSSED LABS,WILL REPORT TO DR YA.
--- NOTE | 2017-07-29 10:03 | NUR ---
DR HANANE JAIN & BOWEN BROWN OUTREACH PROFESSIONAL/SCRIBE IN TO SEE PT. NEW ORDERS.
--- NOTE | 2017-07-29 10:15 | NUR ---
LAB IN FOR BLOOD DRAW. PT RESTING ON BIPAP,EYES CLOSED,OPENS EYES BRIEFLY WHEN TURNED.
--- NOTE | 2017-07-29 10:48 | NUR ---
LACTIC ACID LEVEL REPORTED TO BOWEN HATCH/BERNABE/ DR HANANE JAIN.
--- NOTE | 2017-07-29 11:03 | NUR ---
RESP CULTURE FINAL REPORT CALLED TO BWOEN BORWN LPN/BERNABE/DR YA.
--- NOTE | 2017-07-29 12:26 | NUR ---
PT WITH LARGE LOOSE YELLOW BM,PERICARE,SPONGE BATH, MOUTH CARE,LINEN CHANGE.PT MADE NOISES BRIEFLY WHEN TURNED BUT QUIETED WHEN LEFT ALONE.
--- NOTE | 2017-07-29 15:00 | NUR ---
PT RESTING WITH EYES CLOSED,RR RATE 30,O2 SAT 1005 ON BIPAP 60% O2.
--- NOTE | 2017-07-29 16:45 | NUR ---
PT WITH LOOSE YELLOW BM PERICARE.LINEN CHANGE.MOUTH CARE. PT FRETFUL WHEN TURNED & CLINCHES TEETH WHEN TRY TO DO MOUTH CARE. QUIETENS WHEN LEFT ALONE.
--- NOTE | 2017-07-29 18:00 | NUR ---
RESTING WITH EYES CLOSED.O2 SAT97%.
--- NOTE | 2017-07-29 22:02 | NUR ---
PT HAD MODERATE LOOSE MUSTARD COLORED STOOL. PT WAS CLEANED AND CLEAN CHUX APPLIED UNDER PT. NO SKIN BREAKDOWN NOTED. PT WAS PULLED UP IN BED AND REPOSITIONED TO HER LEFT SIDE.
--- NOTE | 2017-07-29 23:12 | NUR ---
1999--ASSESSMENT COMPLETE, PT RESPIRATIONS ARE 28, SPO2 100 %. PT CONTINUES ON BIPAP WITH SETTINGS CHANGED TODAY: 19/11 28 50 % (WAS 60 % LAST NIGHT). NO DISTRESS NOTED, BUT PT OPENS EYES IS MOANING , GROANING, CRYING SOMEWHAT. SHE IS ABLE TO NOD SLIGHTLY (YES) TO "ARE YOU HURTING", BUT CANNOT TELL NURSE WHERE.. DEMEROL 25 MG IVSP GIVEN FOR PAIN. WILL RE-ASSESS FOR RELIEF. PT JUST POSITIONED ONTO RIGHT SIDE. 2044--PT HAS EYES CLOSED AND IS SLEEPING WITHOUT DISTRESS NOTED. NO INDICATION OF PAIN. 2134--FINGERSTICK FOR GLUCOSE SHOWS 221. NOVOLIN R REGULAR INSULIN 4 UNITS SQ GIVEN IN R UPPER ARM SQ. 2299--PT HAS BM, YELLOW MUSTARD COLOR, SMALL AMT. CLEANED AND REPOSITIONED. PT TOLERATED MEDS VIA NGT EARLIER WITH NO PROBLEM. HAD A 10 CC RESIDUAL PRIOR TO MEDS GIVEN, PLACEMENT OF NGT WAS CHECKED. .
--- NOTE | 2017-07-29 23:46 | NUR ---
PTS. DUONEB TXS. HAVE FALLEN OFF AT 2000. SO GABRIELLA BLACKWELL RN PUT IN A NEW ORDER FOR HER 0000 TX. AND I HAD TO OVERRIDE IN THE OMNICELL TO PULL MED. PT IS STILL IN NEED OF HER DUONEB TXS. EVERY 4 HOURS SO I HAVE GIVEN HER 0000 AND WILL GIVE HER ANOTHER TX. AT 0400.
[2017-07-30] VITALS (23 sets, daily range): BP systolic 101–164; BP diastolic 57–90; TEMP 97.7–98.8
[2017-07-30 06:27] LABS: PLATELET COUNT 104 K/uL (152-353)
--- NOTE | 2017-07-30 06:49 | NUR ---
2300 - PT CLEANED AND DRIED AFTER BM. REPOSITIONED PT, NO DISTRESS NOTED. SH 0100- PT SLEEPING, NO DISTRESS NOTED. SH 0200- PT REPOSITIONED, NO BM NOTED. PT CONT. GARCÍA CONTINUES TO HAVEINCREASED OUTPUT OF URINE, CLEAR, YELLOW. SH 0400 - PT HAS INCONTINENT STOOL EPISODE, SHE IS CLEANED , DRIED AND RE DIAPERED. NO DISTRESS NOTED. SH 0500 - PT MOANING, CRYING, GRIMMACING. DEMEROL 25 MG IVSP GIVEN FOR PAIN. WILL RE-EVALUATE FOR RELIEF. NO OTHER PROBLEMS IDENTIFIED AT THIS TIME. PT CONT. ON BIPAP. SH 0600 - PT SLEEPING WITHOUT DISTRESS NOTED. X-RAY AND LABS OBTAINED. WILL CONT. TO MONITOR. SH
--- NOTE | 2017-07-30 09:00 | NUR ---
PT SLEEPING WELL THIS AM ON BIPAP. REPOSITIONED IN BED, CHECKED NG LEFT NARE. AIR BUBBLES HEARD OVER STOMACH. RECIEVED AM MEDS CRUSHED ALONG WITH FEEDING. CHECKED RESIDUAL PRIOR TO FEEDING NO RESIDUAL NOTED. DR BOATENG AND SHANKAR GONZALEZ INSIDE SALES ADMINISTRATOR VISITED, CHECKED PT RECIEVED ORDERS.
--- NOTE | 2017-07-30 10:29 | NUR ---
SHANDRA QUICK CALLED CHECKING STATUS ON PATIENT, RECIEVED REPORT.
--- NOTE | 2017-07-30 10:31 | NUR ---
SPONGED OFF. CHECKED IV LEFT WRIST NOT FLUSHING WELL, NO BLOOD RETURN PT MOANS WHEN ATTEMPT TO FLUSH IV REMOVED NO REDNESS AT SITE NOTES SWELLING ARMS DEPENTDENT EDEMA. IV CATH INTACT ALSO CHECKED IV HL RIGHT WRIST. NOT FLUSHING WELL IV REMOVED CATH INACT NO SIGNS OF INFECTION.
--- NOTE | 2017-07-30 13:00 | NUR ---
REPOSITIONED IN BED HOB UP RECIEVED PROTIEN ORDERED VIA NG. CONTINUES ON BIPAP.
--- NOTE | 2017-07-30 14:16 | NUR ---
REPORT TO SHANKAR GONZALEZ. GENNERALIZED EDEMA. ARMS LEGS, THIGHS. IV FLUIDS CHECKED. RESET RATE TO 30 ML HR. RECIEVED ORDERS. RESP DEPT HERE PT RECIEVED SYEDA VIA BIPAP. AFTER TX REMOVED BIPAP. PT PLACED ON NC AT 2L. SAT 96 % WILL CONTINUE TO MONITOR. PT MOANED A LITTLE WHEN BIPAP REMOVED. PT APPEARS DROWSY SLEEPING ALOT TODAY.
--- NOTE | 2017-07-30 14:16 | NUR ---
PT TAKEN OFF BIPAP AT THIS TIME AND PLACED ON NC AT 3L. WILL CONINTUE MTO MONITOR.
--- NOTE | 2017-07-30 15:15 | NUR ---
REPOSITIONED IN BED RECIEVED BATH BED CHANGE SAT 97% ON NC AT 2 LITERS. CRIES OUT A LITTLE WHEN SHE IS TURNED, RESTING IN BED EYES OPEN NOT MOVING MUCH DOES NOT APPEAR TO BE IN PAIN.
--- NOTE | 2017-07-30 15:50 | NUR ---
HOB UP CHECKED RESIDUAL NONE. PT RECIEVED FEEDING 60 ML WATER BEFORE, PT RECIEVED 180 ML 2 TAMI, FOLLOWED BY 60 ML WATER TRACIE WELL.
--- NOTE | 2017-07-30 17:30 | NUR ---
RESTING QUIETLY REPOSITIONED APPEARS IN RANDY ACUTE DISTRESS. CONTINUES NOT MOVING MUCH. 3L NC SAT 98%. HOB UP.
--- NOTE | 2017-07-30 19:21 | NUR ---
REPORT TO ONCOMING SHIFT. PT INC OF LIQUID STOOL CLEANED CHANGED BED JOLYNN CARE REPOSITIONED IN BED.
--- NOTE | 2017-07-30 22:00 | NUR ---
PT AWAKE WITH EYES OPEN AND NO DISTRESS OR PAIN NOTED, 22G IV INTACT TO R WRIST WITH D5 1/2 NS INFUSING AT 30ML/HR AND NO PROBLEM TO SITE, RESP RATE NONLABORED, O2 AT 3LPM VIA NC, 14F GARCÍA PATENT DRAINING TO BEDSIDE, NBA HOSE IN USE, FEET AND HANDS ELEVATED ON PILLOWS, DEPEND DRY, NG TUBE INTACT TO L NARE, REPOSITIONED TO BACK, HOB REMAINS ELEVATED, WILL MONITOR, RAILS UP X3, BED IN LOW POSITION.
[2017-07-31] VITALS (23 sets, daily range): BP systolic 108–173; BP diastolic 64–87; TEMP 97.8–99.6
--- NOTE | 2017-07-31 00:04 | NUR ---
PT RESTING IN BED WITH EYES CLOSED, NO S/S OF PAIN OR DISTRESS NOTED, IV INTACT WITH FLUID ONGOING, RESP RATE NONLABORED, O2 AT 3LPM VIA NC, GARCÍA PATENT DRAINING TO BEDSIDE, NBA HOSE IN USE, REPOSITIONED TO R AND FEET ELEVATED ON PILLOW, HANDS ELEVATED ON PILLOW, PT DOES OPEN EYES AND LOOK AT ROCK CLIMBING INSTRUCTOR, MOUTH CARE PROVIDED AND LIPS MOISTURIZED. WILL MONITOR, RAILS UP X3, BED IN LOW POSITION. NG TUBE INTACT TO L NARE.
--- NOTE | 2017-07-31 02:20 | NUR ---
PT AWAKE WITH EYES OPEN, NO S/S OF PAIN OR DISTRESS NOTED, IV INTACT TO R WRIST WITH D5 1/2 NS INFUSING AT 30ML/HR, O2 AT 3LPM VIA NC, RESP RATE NONLABORED, 14 F GARCÍA PATENT DRAINING TO BEDSIDE, DEPEND DRY, NBA HOSE IN USE, FEET AND HANDS ELEVATED ON PILLOWS, NG TUBE INTACT TO L NARE, REPOSITIONED TO BACK WITH HOB ELEVATED, VITALS BEING MONITORED, WILL MONITOR, RAILS UP X3, BED IN LOW POSITION.
--- NOTE | 2017-07-31 04:29 | NUR ---
PT RESTING WITH EYES CLOSED, NO S/S OF PAIN OR DISTRESS NOTED, RESP RATE NONLABORED, O2 AT 3 LPM VIA NC, GARCÍA PATENT DRAINING TO BEDSIDE, IV INTACT WITH FLUID ONGOING, NBA HOSE IN USE, REPOSITIONED TO L SIDE, FEET AND HANDS ELEVATED ON PILLOWS, NG TUBE INTACT TO THE L NARE. VITALS BEING MONITORED, WILL MONITOR, RAILS UP X3, BED IN LOW POSITION, HOB REMAINS ELEVATED.
--- NOTE | 2017-07-31 05:51 | NUR ---
MOUTH CARE COMPLETED, LIPS MOISTURIZED.
[2017-07-31 06:37] LABS: PLATELET COUNT 158 K/uL (152-353)
[2017-07-31 06:59] LABS: POTASSIUM 3.8 mmol/L (3.6-5.2)
--- NOTE | 2017-07-31 08:00 | NUR ---
AM ASSESSEMENT DONE. PT REPOSITIONED IN BED CRIES OUT WHEN MOVED. ANSWER QUESTIONS YES/NO. APPEARS MORE ALERT EYES OPEN.
--- NOTE | 2017-07-31 09:00 | NUR ---
CHECKED NG AIR BUBBLES HEARD OVER STOMACH. NO RESIDUAL NOTED. RECIEVED AM MEDS CRUSHED VIA NG. RECIEVED 1 CAN 2 TAMI WITH WATER BEFORE AND AFTER. TRACIE WELL HOB UP. SHANKAR GONZALEZ PACK PULLER VISITED CHECKED PT RECIEVED NEW ORDERS.
--- NOTE | 2017-07-31 10:00 | NUR ---
PT INC OF STOOL ASSISTED WITH CLEAN UP. SPONGED OFF, BACK UP IN BED TURNED TO RIGHT SIDE.
--- NOTE | 2017-07-31 13:00 | NUR ---
PT CRYING AT TIMES. CHECKED PT INC OF LARGE AMOUT LIQUID STOOL. CLEANED BED PT RECIEVED BATH BED CHANGE. HOB UP.
--- NOTE | 2017-07-31 14:00 | NUR ---
SHANKAR GONZALEZ BENCH MOLDER APPRENTICE VISITED RECIEVED NEW ORDERS. PT TO GET LASIX IV EDEMA GENERALIZED. HOLDING FLUID. IV FLUIDS AT 30 ML HR.
--- NOTE | 2017-07-31 15:30 | NUR ---
INC OF LIQUID STOOL, PT RECIEVD BATH CLEANED CHANGED SHEETS PADS NO SKIN BREAKDOWN NOTED. PT HAVING FREQUENT EPISODES LIQUYID STOOL WILL NEED TO TO ADD BANNANA FLAKES TO FEEDINGS.
--- NOTE | 2017-07-31 17:00 | NUR ---
MRS QUICK HER LEGAL GUARDIAN CALLED. RECIEVED UPDATE. PT CLEANED AGAIN SPONGED OFF SKIN CARE DONE. REPOSITIONED IN BED. MOUTH CARE BY YENI. NOTED DRIED SECRETIONS ON TONGUE. APPEARS MORE ALERT.
--- NOTE | 2017-07-31 21:00 | NUR ---
MOUTH CARE COMPLETED, LIPS MOISTURIZED.
--- NOTE | 2017-07-31 21:10 | NUR ---
PT AWAKE LAYING IN BED, IV INTACT, RESP RATE NONLABORED, O2 AT 2LPM VIA NC, GARCÍA PATENT, NG TUBE INTACT TO L NARE, NBA HOSE IN USE. NG TUBE PLACEMENT CHECKED, ADX MEDICATION CRUSHED IN TUBE, FLUSHED BEFORE AND AFTER WITH 60ML WATER(120ML TOTAL FLUSH). ALSO ADX HALDOL 10MG PRN DUE TO PT SLIGHTLY RESTLESS AND NOTE PT DID NOT SLEEP WELL LAST NIGHT. PT USUALLY GETS THIS MEDICATION TID AT RETIREMENT. REPOSITIONED TO L SIDE, FEET ELEVATED ON PILLOW, WILL MONITOR, RAILS UP, BED IN LOW POSITION, HOB REMAINS ELEVATED.
--- NOTE | 2017-07-31 23:26 | NUR ---
PT AGITATED AND RESTLESS, SHAKING HEAD, PULLING AT NASAL CANNULA, MOVING FEET AROUND IN BED AND KICKED PILLOW OFF BED. TRIED TO REDIRECT PT AND REASSURE HER. PT REMAINS RESTLESS.
[2017-08-01] VITALS (16 sets, daily range): BP systolic 136–177; BP diastolic 64–86; TEMP 98–99.1
--- NOTE | 2017-08-01 00:50 | NUR ---
PT REMAINS RESTLESS AND AGITATED, SHAKING HEAD AND ATTEMPTING TO PULL AT NASAL CANNULA/NG TUBE. RESTLESSNESS HAS INCREASED. RESP RATE NONLABORED, O2 99-100% ON 2LPM VIA NC. ATTEMPTED TO ENCOURAGE PT NOT TO PULL AT TUBES. 0052 ADX ATIVAN 0.5MG IVP PRN. WILL CONTINUE TO MONITOR CLOSELY, RAILS UP X3, BED IN LOW POSITION.
--- NOTE | 2017-08-01 01:25 | NUR ---
PT REMAINS RESTLESS, MOANING OUT SHAKING HEAD BACK AND FORTH APPEARS TO BE AGITATED THAT SHE HAS NG TUBE AND HAS ATTEMPTED TO PULL AT TUBE. STAFF REMAINS AT BEDSIDE.
--- NOTE | 2017-08-01 02:30 | NUR ---
PT NOW RESTING WITH EYES CLOSED, NO S/S OF PAIN OR DISTRESS NOTED, REPOSITIONED TO R SIDE, IV INTACT, O2 IN USE, GARCÍA PATENT, NG TUBE INTACT TO L NARE, NBA HOSE IN USE, HOB ELEVATED, RAILS UP, BED IN LOW POSITION.
--- NOTE | 2017-08-01 04:14 | NUR ---
PT RESTING WITH EYES CLOSED, NO DISTRESS NOTED. O2 SAT DROPPED TO 89% ON 2LPM VIA NC, RAISED HOB TO HF POSITION, PT ENCOURAGED TO COUGH BUT WILL NOT FOLLOW COMMAND(SOUNDS IF SHE NEEDS TO COUGH TO CLEAR THROAT), PT SUCTIONED ORALLY WITH YANKAUER TWICE WITH THICK YELLOW SPUTUM SUCTIONED FROM MOUTH AND PT COUGHED MULTIPLE TIMES. PT DID BITE YANKAUER. O2 SAT NOW INCREASED TO 97% ON 2LPM VIA NC. HOB REMAINS ELEVATED. SKIN WARM AND DRY, IV INTACT TO R WRIST/HAND WITH D5 1/2 NS AT 30ML/HR WITH NO PROBLEMS NOTED TO SITE, L14F GARCÍA PATENT DRAINING TO BEDSIDE, FEET ELEVATED ON PILLOW, HANDS ELEVATED ON PILLOW(SWELLING IN HANDS HAS DECREASED SINCE SUNDAY), NG TUBE INTACT TO L NARE WITH NO PROBLEMS NOTED. REPOSITIONED TO BACK. WILL MONITOR, RAILS UP, BED IN LOW POSITION.
--- NOTE | 2017-08-01 04:16 | NUR ---
MOUTH CARE COMPLETED, LIPS MOISTURIZED.
[2017-08-01 06:27] LABS: PLATELET COUNT 192 K/uL (152-353)
[2017-08-01 06:56] LABS: POTASSIUM 3.4 mmol/L (3.6-5.2); SODIUM 140 mmol/L (136-145)
--- NOTE | 2017-08-01 08:00 | NUR ---
LINO VIRGEN AT BEDSIDE TO EVALUATE PATIENT. PATIENT RESTING WELL AT THIS TIME. LINO WILL COME BACK THIS AFTERNOON TO EVALUATE AND DISCUSS NEED FOR MODIFIFED STUDY.
--- NOTE | 2017-08-01 08:30 | NUR ---
JOSE DEL CID AND DR. BOATENG HERE TO EVALUATE PATIENT. NO NEW ORDERS AT THIS TIME. NG FEEDINGS ARE TO BE HELD AT THIS TIME D/T POSSIBILITY OF MODIFIED STUDY LATER TODAY.
--- NOTE | 2017-08-01 11:00 | NUR ---
PATIENT PLACED ON BACK AT THIS TIME. POUTING LIPS AND ATTEMPTING TO REMOVE NG TUBE FROM LT NARE. MITT PLACED ON LT HAND.
--- NOTE | 2017-08-01 12:00 | NUR ---
ORAL CARE PERFORMED AND POSITIONED ON RIGHT SIDE. O2 SAT REMAINS 96%-99% 2L VIA NC. HOB ELEVATED AND HEELS FLOATED.
--- NOTE | 2017-08-01 14:00 | NUR ---
TURNED AND REPOSITIONED ON LT SIDE.
--- NOTE | 2017-08-01 14:15 | NUR ---
PATIENT APPEARS TO BE VERY FRETFUL AND WHIMPERING. SCOOTING DOWN IN THE BED. SHE HAS BEEN REPOSITIONED. CPT BY HAND PERFORMED D/T DECREASE O2 SAT (76%) AND ATTEMPTED COUGH.
--- NOTE | 2017-08-01 14:30 | NUR ---
PATIENT O2 SAT DECREASED 85%-91% ON 2L VIA NC AGAIN. RESPIRATORY AT BEDSIDE INCREASED O2 TO 3L VIA NC. O2 SAT IMPROVED TO 97%. PATIENT AGITATED AND AGAIN REPOSITIONED BACK TO RIGHT SIDE.
--- NOTE | 2017-08-01 15:30 | NUR ---
AGITATED AND CONTINUOUSLY MOVING LEGS FROM SIDE TO SIDE. MULTIPLE ATTEMTS TO CONSOLE AND SOOTHE HAVE BEEN UNSUCCESSFUL. ATIVAN PRN GIVEN.
--- NOTE | 2017-08-01 15:40 | NUR ---
PHYSICAL THERAPY AT BEDSIDE. PATIENT SAT ON SIDE OF BED WITH ASSISTANCE. PATIENT TOLERATED ACTIVITY WELL.
--- NOTE | 2017-08-01 16:50 | NUR ---
PATIENT BEGAN TO COUGH MORE FORCEFULLY. GURGLING SOUND ACCOMPANIED A DECREASE IN O2 SAT TO 80%. ATTEMPTED TO SUCTION WITH YANKAUER WITH BUT WAS UNABLE TO COLLECT SPUTUM. PATIENT DEEP SUCTIONED AT THIS TIME. VERY THICK SPUTUM WAS REMOVED FROM OROPHARYNX. PROCEDURE WAS TOLERATED WELL. O2 SATS REMAINED GREATER THAN 95% JOSE DEL CID NOTIFIED. NEW ORDERS OBTAINED TO RESTART SMART VEST Q6H. PATIENT PLACED ON BACK WITH HER HOB ELEVATED AND HEELS FLOATED. CURRENT O2 SAT @ 98% ON 3L VIA NC.
--- NOTE | 2017-08-01 17:28 | NUR ---
GABRIELLA PONCE FOOT SPECIALIST CALLED ABOUT PT'S DIARRHEA WITH FEEDINGS. ORDER TO CHANGE TO NEPRO 1 CAN TID WITH 1 PACK BANANA FLAKES WITH EACH FEEDING.
--- NOTE | 2017-08-01 18:09 | NUR ---
CURRENTLY ON BACK AND RESTING WELL. O2 SAT 97% HOB ELEVATED AND HEELS FLOATED. NO DISTRESS NOTED.
--- NOTE | 2017-08-01 19:12 | NUR ---
CALLED DR. SPANN TO REPORT URINARY OUTPUT OF 300ML ON DAY SHIFT. IV INTAKE OF 2523. NEW ORDERS GIVEN FOR LASIX 20MG IV X 1 DOSE NOW. CALL TO REPORT URINARY OUTPUT BY 10PM.
--- NOTE | 2017-08-01 19:31 | NUR ---
RESP AT BEDSIDE FOR SMART VEST THERAPY. PT WITH COUGH. NONPRODUCTIVE .
--- NOTE | 2017-08-01 20:23 | NUR ---
PT AGITATED AFTER SMART VEST THERPY. MEDICATED PT WITH BENADRYL 25 MG IV ORDERED.
--- NOTE | 2017-08-01 22:15 | NUR ---
CALLED AND REPORTED URINE OUTPUT OF 1400 ML AFTER PM LASIX WAS GIVEN.
--- NOTE | 2017-08-01 23:59 | NUR ---
PT WAS INCONTINENT OF BM. PT HAD LARGE LOOSE BROWN/MUSTARD COLORED STOOL. PT WAS CLEANED . NO SKINBREAKDOWN NOTED. BED LINEN CHANGED AND NEW CHUX WERE APPLIED UNDER PT'S JOLYNN AREA. PT DID WHINE WITH THIS ACTIVITY.
[2017-08-02] VITALS (10 sets, daily range): BP systolic 140–173; BP diastolic 67–82; TEMP 98.2–99
--- NOTE | 2017-08-02 00:46 | NUR ---
PT WAS GIVEN ORAL CARE AND NYSTATIN ORAL S/S WAS APPLIED TO PT'S ORAL CAVITY...TONGUE/MUCOUS MEMBRANES.
--- NOTE | 2017-08-02 01:45 | NUR ---
EMPTIED 1750 ML OF YELLOW URINE.
--- NOTE | 2017-08-02 04:38 | NUR ---
PT WAS REPOSITIONED IN BED. ORAL CARE GIVEN. LIPS LUBRICATED AND MM WERE MOISTENED.
--- NOTE | 2017-08-02 05:57 | NUR ---
PT WAS SUCTIONED ORALLY. THICK WHITE SECRETIONS OBTAINED. ATTEMPT X2 TO OBTAIN BLOOD FOR AM LABS UNSUCCESSFUL.
[2017-08-02 06:53] LABS: PLATELET COUNT 249 K/uL (152-353)
[2017-08-02 07:16] LABS: POTASSIUM 3.7 mmol/L (3.6-5.2)
--- NOTE | 2017-08-02 09:00 | NUR ---
SITTING IN BED WITH EYES OPEN WIDE. DRAPED FOR FEEDING AND MEDICATION ADMINISTRATION. TOLERATED FEEDINGS WELL. ORAL AND AM CARE PERFOFRMED.
--- NOTE | 2017-08-02 10:45 | NUR ---
MOANING. WHEN ASKED IF SHE WAS IN PAIN, SHE POUTED LIPS.
--- NOTE | 2017-08-02 11:00 | NUR ---
WHEN ASKED PATIENT IF SHE WANTED TO GET UP AND INTO CHAIR SHE STATED, "YEAH". SAT PATIENT ON SIDE OF BED FOR A FEW MINUTES THEN MOVED FROM BED TO CHAIR WITH ASSISTANCE FROM ROCKY FINN RN. POSITIONED WITH PILLOWS UNDER EACH ARM FOR COMFORT.
--- NOTE | 2017-08-02 11:39 | NUR ---
PHYSICAL THERAPY AT CHAIRSIDE.
--- NOTE | 2017-08-02 13:00 | NUR ---
SITTING UPRIGHT IN CHAIR. FEET ELEVATED AND CARTOONS TURNED ON. COMPLAINS OF ARM DISCOMFORT. ARM REPOSITIONED AND PILLOW PLACED UNDER IT.
--- NOTE | 2017-08-02 15:00 | NUR ---
C/O BACK PAIN. JOSE DEL CID NOTIFIEDD.TORADOL ORDERED.
--- NOTE | 2017-08-02 15:30 | NUR ---
SHANKAR GONZALEZ PICTURES EDITOR IN TO SEE PT. REVIEWED SPEECH THERAPY'S RECOMMENDATIONS. REQUESTED STATE GUARDIAN BE NOTIFIED & CONSENT OBTAINED FOR GT PLACEMENT.
--- NOTE | 2017-08-02 15:49 | NUR ---
MESSAGE LEFT FOR SHANDRA QUICK GUARDIAN OF PT TO CALL. WILL DISCUSS GT PLACEMENT.
--- NOTE | 2017-08-02 16:05 | NUR ---
SHANDRA QUICK, GUARDIAN OF PATIENT RETURNED PHONE CALL. INFORMED HER OF THE NEED TO PLACE A GASTRIC FEEDING TUBE. INSTRUCTIONS GIVEN ON HOW TO GET APPROVAL. SHEETS WILL BE FILLED OUT AND SCANNED TO [email or web address]
--- NOTE | 2017-08-02 16:15 | NUR ---
DISCUSSED DOCUMENTATION NEEDED FOR GT INSERTION WITH SHANKAR GARCIA. SHANKAR TO WORK ON PAPER WORK IN AM.
--- NOTE | 2017-08-02 19:24 | NUR ---
PT WITH 280 ML OUTPUT URINE. REPORTED TO DR LUIS LAND PER YENI DALEY RN. NEW ORDERS.
--- NOTE | 2017-08-02 20:01 | NUR ---
D5NS BOLUS STARTED. BENADRYL 25 MG IVSP GIVEN PT IS RESTLESS.
--- NOTE | 2017-08-02 21:00 | NUR ---
PM MEDS WERE CRUSHED AND GIVEN PER NG TUBE.
--- NOTE | 2017-08-02 22:00 | NUR ---
DR. LAND VISITED AND ASSESSED PT'S URINE OUTPUT. NO NEW ORDERS RECEIVED.
[2017-08-03] VITALS (14 sets, daily range): BP systolic 127–157; BP diastolic 81–108; TEMP 97.5–99.8
--- NOTE | 2017-08-03 02:33 | NUR ---
PT AROUSED. PT DOES GRUNT AND MOAN WHEN MOVED IN BED. PT WAS CLEANED. PT INCONTINENT OF BM. LOOSE BROWN/MUSTARD COLORED STOOL. BED LINENS WERE CHANGED. GOWN CHANGED.
--- NOTE | 2017-08-03 03:36 | NUR ---
MOM GIVEN FOR BM.
--- NOTE | 2017-08-03 07:30 | NUR ---
PT INC OF LIQUID STOOL YELLOW COLOR NO ODOR. ASSIST WITH CLEAN UP. REPOSITIONED IN BED. HOB UP. IV FLUIDS INFUSING WITHOUT DIFFICULTY.
[2017-08-03 08:40] LABS: POTASSIUM 3.9 mmol/L (3.6-5.2)
[2017-08-03 08:41] LABS: PLATELET COUNT 343 K/uL (152-353)
--- NOTE | 2017-08-03 09:00 | NUR ---
SHANKAR GONZALEZ HOSPITAL RECEPTIONIST AND DR BOATENG VISITED CHECKED PT RECIEVED ORDERS.
--- NOTE | 2017-08-03 09:40 | NUR ---
HOB UP PT AWAKE. NOT TALKING MUCH. MOANS A LITTLE WHEN TURNING/PULLING PT UP IN BED. CHECKED NG NO RESIDUAL. AIR BUBBLES HEARD. PT RECIEVED NEPRO 1 CAN WITH AM MEDS. MEDS FOR CONSTIPATION HELD. PT TRACIE WELL.
--- NOTE | 2017-08-03 11:00 | NUR ---
PHYSICAL THERAPY HERE WORKED WITH PT. PT NOT FOLLOWING COMMANDS WELL. MOANS OUT WHILE TRYING TO GET UP. PT VERY WEAK. ASSIST TO STANDING UNABLE UNABLE TO STAND AND BEAR WT. PT MOVED TO CHAIR.
--- NOTE | 2017-08-03 14:00 | NUR ---
PT ASSIST BACK TO BED WEAK UNABLE TO BEAR WT. CHECKED PT CLEAN AND DRY MOUTH CARE UP IN BED.
--- NOTE | 2017-08-03 17:08 | NUR ---
PT AWAKE RESTING IN BED HOB UP TURNED AND REPOSITIONED.
--- NOTE | 2017-08-03 20:00 | NUR ---
PT AWAKE LAYING IN BED LOOKING AROUND, NO S/S OF PAIN OR DISTRESS NOTED, 22G IV INTACT TO R HAND WITH NO PROBLEMS NOTED TO SITE, O2 AT 2LPM VIA NC, RESP RATE NONLABORED, GARCÍA PATENT DRAINING TO BEDSIDE, NG TUBE INTACT TO L NARE, FEET ELEVATED ON PILLOW, HOB REMAINS ELEVATED, REPOSITIONED, WILL MONITOR, RAILS UP, BED IN LOW POSITION. PT ATTEMPTING TO TALK TO HEEL SEAT TRIMMER BUT HARD TO UNDERSTAND PT.
--- NOTE | 2017-08-03 22:10 | NUR ---
PT RESTING WITH NO DISTRESS OR PAIN NOTED, RESP RATE NONLABORED, O2 AT 2LPM VIA NC, GARCÍA PATENT DRAINING TO BEDSIDE, FEET ELEVATED ON PILLOW, REPOSITIONED TO L SIDE WITH HOB ELEVATED, 22G IV INTACT TO R HAND/WRIST WITH NO PROBLEMS NOTED TO SITE AND FLUID ONGOING, NG TUBE INTACT TO L NARE, MOUTH CARE PROVIDED AND LIPS MOISTURIZED. WILL CONTINUE TO MONITOR CLOSELY, RAILS UP X3, BED IN LOW POSITION, HOB REMAINS ELEVATED.
[2017-08-04] VITALS (17 sets, daily range): BP systolic 105–193; BP diastolic 62–100; TEMP 98.1–99.7
--- NOTE | 2017-08-04 00:22 | NUR ---
PT RESTING IN BED WITH EYES CLOSED, NO S/S OF PAIN OR DISTRESS NOTED, IV INTACT WITH FLUID ONGOING, RESP RATE NONLABORED, O2 AT 2LPM VIA NC, GARCÍA PATENT DRAINING TO BEDSIDE, NG TUBE INTACT TO L NARE, REPOSITIONED TO BACK, FEET ELEVATED ON PILLOW, WILL MONITOR CLOSELY, RAILS UP X3, BED IN LOW POSITION.
--- NOTE | 2017-08-04 01:55 | NUR ---
RESTING IN BED WITH EYES CLOSED, NO S/S OF PAIN OR DISTRESS NOTED, IV INTACT WITH FLUID ONGOING, RESP RATE NONLABORED, O2 AT 2LPM VIA NC, 14F GARCÍA PATENT DRAINING TO BEDSIDE, NG TUBE INTACT TO L NARE WITH NO PROBLEMS NOTED, REPOSITIONED TO R SIDE, FEET ELEVATED ON PILLOW. NG TUBE PLACEMENT VERIFIED, GAVE PT FEEDING 1/2 CAN VIA NG TUBE, NOTE NG TUBE FLUSHED WITH 60ML WATER BEFORE AND AFTER. TOLERATED WITH NO PROBLEMS. HOB REMAINS ELEVATED, WILL MONITOR, RAILS UP X3, BED IN LOW POSITION.
--- NOTE | 2017-08-04 04:18 | NUR ---
RESTING QUIETLY IN BED WITH EYES CLOSED, NO S/S OF PAIN OR DISTRESS NOTED, RESP RATE NONLABORED, O2 AT 2LPM VIA NC, GARCÍA PATENT DRAINING TO BEDSIDE, IV SITE INTACT WITH NO PROBLEMS NOTED, NG TUBE INTACT TO L NARE, REPOSITIONED TO BACK, FEET ELEVATED ON PILLOW, WILL MONITOR, RAILS UP X3, BED IN LOW POSITION.
--- NOTE | 2017-08-04 06:00 | NUR ---
PT RESTING WITH EYES CLOSED, NO S/S OF DISTRESS NOTED, RESP RATE NONLABORED, O2 AT 2LPM VIA NC, BOTH IV SITES INTACT, DEPEND DRY, NG TUBE INTACT TO L NARE, GARCÍA PATENT DRAINING TO BEDSIDE. PT GIVEN BED BATH, MOUTH CARE GIVEN AND LIPS MOISTURIZED. GOWN AND LIGHT RAIL OPERATOR LEADS CHANGED. REPOSITIONED TO L SIDE, FEET ELEVATED ON PILLOW, WILL MONITOR, RAILS UP X3, BED IN LOW POSITION.
[2017-08-04 06:48] LABS: POTASSIUM 4.3 mmol/L (3.6-5.2)
[2017-08-04 06:54] LABS: PLATELET COUNT 310 K/uL (152-353)
--- NOTE | 2017-08-04 08:00 | NUR ---
AM ASSESSEMENT DONE PT RESTING QUIETLY HOB UP. RESP EVEN SAT 99% PT ON O2 AT 2L NC. NOTED GENERALIZED EDEMA, AND CORTNEY WILL REPORT TO .
--- NOTE | 2017-08-04 09:00 | NUR ---
CHECKED PLACEMENT NG AIR BUBBLE HEARD OVER STOMACH. RESIDUAL GREATER THAN 30 ML FEEDING HELD FOR NOW. PT RECIEVED MEDS VIA NG.
--- NOTE | 2017-08-04 10:00 | NUR ---
DR SPANN VISITED CHECKED PT RECIEVED ORDERS. PT TO RECIEVED TWO UNITS PRBC'S. CALLED MADE TO SHANDRA QUICK TO GET CONSENT FOR BLOOD. NO ANSWER LEFT MESSAGE. PT RESTING QUIETLY. LAB HERE STARTED SECOND IV LEFT AC 20 X 1 STICK FOR BLOOD TRANSFUSION. OBTAINED BLOOD FOR LAB.
--- NOTE | 2017-08-04 11:40 | NUR ---
PT REPOSITIONED IN BED HOB UP PT PULLING AT NG. PULLED OUT APPROX 8 IN . TOLD PT NOT TO PULL AT TUBE TUBE INSERTED BACK REMOVED OLD TAPE AND RETAPED TUBE PLACED UP BEHIND HEAD. WHERE PT CAN'T GET TO IT.
--- NOTE | 2017-08-04 11:45 | NUR ---
CALLED TO MRS QUICK. TOLD HER ABOUT DR SPANN MAKING ROUNDS THIS AM. REPORT THAT HE HAD ORDERED TWO UNITS PRBC'S. SENT FORM TO OBTAIN MEDICAL CONSENT ON A ADAME PATIENT.
--- NOTE | 2017-08-04 13:30 | NUR ---
CHECKED NG TUBE NO RESIDUAL. PT RECIEVED FEEDING VIA NG TUBE TRACIE WELL HOB UP
--- NOTE | 2017-08-04 14:14 | NUR ---
PT TURNED AND REPOSITIONED INC LARGE AMOUNT LIQUID STOOL PT CLEANED UP CHANGED BED AND GOWN. STOOL SPEC OBTAINED SPEC TO LAB
--- NOTE | 2017-08-04 15:38 | NUR ---
FIRST UNIT PRBC'S STARTED. PT RESTING QUIETLY DROWSY. LASIX EFFECTIVE GIVEN EARLIER VOIDING WELL.
--- NOTE | 2017-08-04 18:16 | NUR ---
PT REPOSITIONED ON LEFT SIDE. PT ALERT TALKING, ASKED PT HER NAME SHE WAS ABLE TO TELL YOU. TALKING MORE. KEEPS WANTING TO PULL AT NG TUBE. BLOOD INFUSING WITHOUT DIFFICULTY.. IV BEEPING PT WILL NOT KEEP ARM STRAIGHT. IV 20 GA LEFT AC. MOUT CARE DONE. ASSIST BY ROBERT DALEY LPN. HOB UP. 3.3
[2017-08-05] VITALS (18 sets, daily range): BP systolic 144–209; BP diastolic 73–104; TEMP 97.6–99.4
--- NOTE | 2017-08-05 00:21 | NUR ---
08-04-171999 PT IN BED AWAKE, CRIES OUT AT TIMES, THIS IS HER REPORTED NORMAL. PT IS TALKING TO NURSE BY VERBALLY ANSWERING QUESTIONS, AND SHE ANSWERS APPROPRIATELY. PT DENIES PAIN, NAUSEA. SHE IS RECEIVING HER SECOND U UNIT OF PRBC'S. SHE IS DOING WELL, NO S/S OF DISTRESS NOTED. SHE IS OBSERVED TO BE AGITATED WITH HER NGT TO LEFT NARES. SHE HAS TO REMINDED CONTIINUOUSLY TO NOT PULL IT OUT, WE WILL HAVE TO PUT IT BACK IN. SHE VOICES OK. ASSESSMENT COMPLETE. SH
--- NOTE | 2017-08-05 00:58 | NUR ---
2-318 2100 PT CONT TO CRY OUT AT TIMES, DENIES PAIN. PRBCS CONT TO INFUSE WITHOUT DIFFICULTY. BP CONT TO BE ELEVATED THIS AFTERNOON AND REMAINS ABOUT THE SAME. NGT PLACEMENT VERIFIED AND NO RESIDUAL FOUND. PT CONT PUTS HAND ON NGT AND SAYS THAT SHE WANTS IT OUT. NURSE ENCOURAGES PT TO LEAVE IT ALONE BECAUSE IT WILL HAVE TO BE PUT BACK IN, SHE VOICES OK AND MOVES HER HAND. SHE DOES REMAIN AGITATED THE NGT. SH
--- NOTE | 2017-08-05 02:07 | NUR ---
07-07-17 7842 PT GIVEN LORAZEPAM 0.5 MG IVSP FOR AGITATION ABOUT NGT. SHE BECAME MORE CALM AND WENT TO SLEEP WITHOUT DISTRESS. RESPIRRATIONS DECREASED TO 28, HR NOW 80'S. NURSE JACK CHI PT. PT TOLERATED NGT MEDS EARLIER WITHOUT PROBLEMS. SH
--- NOTE | 2017-08-05 02:11 | NUR ---
08-05-17 0030 PT CONT TO SLEEP WITHOUT DISTRESS NOTED. PT CONT TO HAVE INCREASED OUTPUT OF BELL YELLOW COLORED URINE IN GARCÍA SINCE ADMIN OF LASIX EARLIER. BP HAS LOWERED ALSO. SH
--- NOTE | 2017-08-05 02:11 | NUR ---
2330 PT REMAINS CALM, SLEEPING. NO DISTRESS NOTED. SH
--- NOTE | 2017-08-05 02:14 | NUR ---
0215 PT IS QUIET AND SLEEPING WITHOUT ANY DISTRESSM NOTED. SHE DOES OPEN EYES TO NURSE VOICE THEN, GOES BACK TO SLEEP. WILL CONT TO MONITOR. SH
[2017-08-05 06:34] LABS: PLATELET COUNT 269 K/uL (152-353)
[2017-08-05 06:46] LABS: POTASSIUM 3.9 mmol/L (3.6-5.2)
--- NOTE | 2017-08-05 09:23 | NUR ---
0300 PT CONT. TO SLEEP WITHOUT ANY DISTRESS NOTED. 0400 PT REPOSITIONED. NO DISTRESS NOTED. 0500 PT CONT. TO SLEEP WITHOUT ANY DISTRESS NOTED. 0600 PT HAS SLEPT WELL WITH NON-LABORED RESPIRATIONS. NO DISTRESS NOTED. PT REPOSITIONED. SH.
--- NOTE | 2017-08-05 12:00 | NUR ---
PATIENT TURNED Q2 HOURS
--- NOTE | 2017-08-05 18:40 | NUR ---
PATIENT BATHED AND LINEN CHANGED
--- NOTE | 2017-08-05 22:00 | NUR ---
RESTING WITH EYES CLOSED, NO S/S OF PAIN OR DISTRESS NOTED, IV INTACT, O2 IN USE, GARCÍA PATENT DRAINING TO BEDSIDE, RESP RATE NONLABORED, NG TUBE INTACT TO L NARE, NBA HOSE IN USE. PT AROUSED TO MANAGER PUBLISHING TOUCHING HER, ATTEMPTING TO TALK TO MANAGER PUBLISHING, ANSWERS YES AND NO QUESTIONS AND FOCUSES ON MANAGER PUBLISHING. MOUTH CARE PROVIDED AND LIPS MOISTURIZED. WILL MONITOR, RAILS UP, BED IN LOW POSITION.
[2017-08-06] VITALS (16 sets, daily range): BP systolic 123–174; BP diastolic 73–98; TEMP 98–99
--- NOTE | 2017-08-06 00:10 | NUR ---
CONTINUES TO REST WITH EYES CLOSED AND NO DISTRESS NOTED, IV INTACT, NG TUBE INTACT TO L NARE, RESP RATE NONLABORED, GARCÍA PATENT DRAINING TO BEDSIDE, NBA HOSE IN USE, FEET AND HANDS ELEVATED ON PILLOWS, REPOSITIONED TO R SIDE, WILL MONITOR, RAILS UP X3, BED IN LOW POSITION, HOB REMAINS ELEVATED.
--- NOTE | 2017-08-06 04:20 | NUR ---
RESTING WITH EYES CLOSED, NO S/S OF PAIN OR DISTRESS NOTED, IV INTACT TO L AC WITH FLUID ONGOING, RESP RATE NONLABORED, O2 AT 2LPM VIA NC, NG TUBE INTACT TO L NARE, 14F GARCÍA PATENT DRAINING TO BEDSIDE, FEET AND HANDS ELEVATED ON PILLOWS, NBA HOSE IN USE, WILL MONITOR, RAILS UP X3, BED IN LOW POSITION, HOB REMAINS ELEVATED.
[2017-08-06 06:25] LABS: POTASSIUM 3.9 mmol/L (3.6-5.2)
[2017-08-06 06:31] LABS: PLATELET COUNT 279 K/uL (152-353)
--- NOTE | 2017-08-06 08:00 | NUR ---
PT RESTING IN LF,PLEASAT & SMILING.
--- NOTE | 2017-08-06 10:40 | NUR ---
SHANKAR GONZALEZ RECESSING MACHINE OPERATOR AT [facility]
--- NOTE | 2017-08-06 11:24 | NUR ---
report called to Jethro novak rn.
--- NOTE | 2017-08-06 14:15 | NUR ---
REPORT RECIEVED FROM ADRIANA MEDINA.
--- NOTE | 2017-08-06 14:32 | NUR ---
PT TRANSFERED VIA STRETCHER TO [facility]
--- NOTE | 2017-08-06 14:50 | NUR ---
PT AWAKE AND ALERT. PT HAS NO S/S OF ANY PROBLEMS OR DISTRESS. ASSESSMENT COMPLETE AT THIS TIME. IV FLUIDS AND ANTIBIOTIC INFUSING. WILL CONT TO MONITOR.
[2017-08-07 04:00] VITALS: BP 174/97; TEMP 97.9
[2017-08-07 08:48] VITALS: BP 176/94; TEMP 97.8
--- NOTE | 2017-08-07 11:05 | NUR ---
PT WITH SPEECH THERAPY FOR SWALLOW STUDY.
--- NOTE | 2017-08-07 11:49 | NUR ---
PT RETURNED FROM SPEECH CONSULT. NAD NOTED. PT SITTING UPRIGHT IN BED. SR UPX2. BED LOWERED. WILL CONTINUE TO MONITOR.
--- NOTE | 2017-08-07 15:17 | NUR ---
ORAL CARE PROVIDED TO PT. PT TOLERATED WELL.
--- NOTE | 2017-08-07 15:58 | NUR ---
PT CLAY PRESS OPERATOR SITTING WITH PT.
[2017-08-07 20:00] VITALS: BP 158/88; TEMP 97.3
[2017-08-08] VITALS: BP 129/81; TEMP 98
[2017-08-08 04:00] VITALS: BP 154/91; TEMP 97.7
[2017-08-08 06:39] LABS: PLATELET COUNT 195 K/uL (152-353)
[2017-08-08 06:49] LABS: POTASSIUM 4.2 mmol/L (3.6-5.2)
[2017-08-08 08:10] VITALS: BP 149/84; TEMP 97.8
[2017-08-08 11:30] VITALS: BP 142/86; TEMP 97.5
--- NOTE | 2017-08-08 11:32 | NUR ---
IV TO PTS LEFT AC NOT INFUSING. LEAKAGE NOTED AROUND IV SITE.
--- NOTE | 2017-08-08 15:20 | NUR ---
IV 22G TO RIGHT HAND X5 ATTEMPTS. PT TOLERATED PROCEDURE WELL.
--- NOTE | 2017-08-08 16:20 | NUR ---
PT TAKEN TO OR VIA STRETCHER ACCOMPANIED BY OR STAFF.
--- NOTE | 2017-08-08 16:52 | NUR ---
REPORT RECEIVED FROM RACHEL ADAMS RN IN OR. VITALS STABLE AT 100% O2 SAT 80 HEART RATE BP 142/89.
--- NOTE | 2017-08-08 18:15 | NUR ---
PT IS CRYING STATING "SHE NEEDS TO GO #2." POSITIONED PATIENT ON A BED [place] AND PT COULD NOT GO. PLACED BRIEF ON PT AND EXPLAINED THAT IF SHE NEEDED TO GO, THAT SHE HAD A BRIEF ON. PT QUIT CRYING.
[2017-08-08 20:00] VITALS: BP 130/94; TEMP 98.2
--- NOTE | 2017-08-08 21:45 | NUR ---
DR. HERNANDEZ NOTIFIED OF PT BLOOD GLUCOSE 60. D5 50%. 1/2 AMPULE GIVEN.
--- NOTE | 2017-08-08 23:14 | NUR ---
PT SAYS NO WHEN ASKED IF SHE IS HURTING. PT SMILES AND LAUGHS WITH NURSES.
--- NOTE | 2017-08-08 23:46 | NUR ---
PT GIVEN 5ML HYDROCODONE SOLUTION PER G-TUBE
[2017-08-09] VITALS: BP 128/84; TEMP 98.3
--- NOTE | 2017-08-09 03:00 | NUR ---
PT RESTING QUIETLY WITH EYES CLOSED.
[2017-08-09 04:00] VITALS: BP 130/83; TEMP 98.1
[2017-08-09 05:39] LABS: PLATELET COUNT 140 K/uL (152-353)
[2017-08-09 08:03] VITALS: BP 142/91; TEMP 98
--- NOTE | 2017-08-09 17:42 | NUR ---
PT BATHED AND MOUTH CARE DONE. PT TOLERATED WELL. PT SITTING UP IN CHAIR WATCHING TV. IV FLUIDS INFUSING AT 75. NAD NOTED. WILL CONTINUE TO MONITOR.
[2017-08-09 18:16] VITALS: BP 149/94; TEMP 98.8
[2017-08-09 20:00] VITALS: BP 158/88; TEMP 99
[2017-08-10] VITALS: BP 150/82; TEMP 98.9
--- NOTE | 2017-08-10 | NUR ---
08/09/172034 GLUCOSE 120.CC
--- NOTE | 2017-08-10 00:01 | NUR ---
08/09/17 2150 PT GIVEN 1/2 CAN JEVITY 1.5 PT WAS ACTING LIKEE SHE WAS GAGGING WAS GIVEN PER GRAVITY FORMULA STOP IN TUBE.FLUSHED WITH 60ML WATER TOLERATED WELL FIRST FEEDING GIVEN FOLLOWING TUBE PLACEMENT.CC
--- NOTE | 2017-08-10 01:31 | NUR ---
08/10/17 0100 PT SAID SHE WANTS TO GET BACK IN BED. ASSISTED PT TO BED TURNED TO LEFT SIDE NAD NOTED.CALL LIGHT WITHIN REACH SIDE RAILS X 2.REASSURED PT THAT WE WILL BE CHECKING IN ON HER FREQUENTLY.CC
--- NOTE | 2017-08-10 02:58 | NUR ---
08/10/17 0300 RESTING QUEITLY IN BED WITH EYES CLOSED RESP EVEN NONLABORED NAD NOTED.CC
--- NOTE | 2017-08-10 03:39 | NUR ---
08/10/17 0340 RESTING WITH EYES CLOSED NAD NOTED RESP EVEN NONLABORED.CC
[2017-08-10 04:00] VITALS: BP 143/83; TEMP 98.2
[2017-08-10 05:41] LABS: PLATELET COUNT 114 K/uL (152-353)
[2017-08-10 05:56] LABS: POTASSIUM 4.1 mmol/L (3.6-5.2)
[2017-08-10 08:24] VITALS: BP 171/89; TEMP 97.5
[2017-08-10 12:04] VITALS: BP 153/80; TEMP 97.8
[2017-08-10 16:00] VITALS: BP 143/63; TEMP 98.7
[2017-08-10 20:00] VITALS: BP 148/85; TEMP 98.4
[2017-08-11] VITALS (7 sets, daily range): BP systolic 113–164; BP diastolic 69–89; TEMP 97.8–99.3
[2017-08-12 03:47] VITALS: BP 133/72; TEMP 99
[2017-08-12 07:12] VITALS: BP 112/69; TEMP 97.6
[2017-08-12 12:15] VITALS: BP 117/62; TEMP 98.7
[2017-08-12 16:00] VITALS: BP 123/57; TEMP 98.4
[2017-08-12 19:59] VITALS: BP 86/50; TEMP 97.6
--- NOTE | 2017-08-12 21:56 | NUR ---
08/12/175: PEG TUBE FEEDING WITH MEDS INCORPORATED. NO RESIDUAL BACK. 1 CONTAINER JEVITY 1.5, GIVEN AND FLUSHED WITH 100 ML WATER. PT TOLERATED WELL.
[2017-08-13] VITALS: BP 125/65; TEMP 99
[2017-08-13 03:51] VITALS: BP 143/79; TEMP 99.1
[2017-08-13 06:15] LABS: POTASSIUM 3.8 mmol/L (3.6-5.2)
[2017-08-13 06:17] LABS: PLATELET COUNT 109 K/uL (152-353)
[2017-08-13 07:55] VITALS: BP 137/81; TEMP 97.2
--- NOTE | 2017-08-13 09:15 | NUR ---
NO RESIDUAL IN PEG TUBE. TUBE FLUSHED WITH WATER. MEDS AND FEEDING GIVEN. FLUSHED WITH WATER AFTERWARDS. PT TRACIE WELL. MOUTH CARE DONE.
[2017-08-13 12:00] VITALS: BP 112/65; TEMP 98.3
--- NOTE | 2017-08-13 15:05 | NUR ---
GAVE REPORT TO EDIE AT [facility] – [place], [place].
--- NOTE | 2017-08-13 16:00 | NUR ---
GAVE PT A BATH. PT DRESSED. GOT PT UP TO CHAIR. PT DID NOT OFF ANY HELP GETTING UP.
--- NOTE | 2017-08-13 16:30 | NUR ---
[facility] HERE TO GET PT FOR TRANSPORT IN A CAR. PT UNABLE TO GO VIA CAR. [facility] CALLED WITH A DENIAL CODE.
--- NOTE | 2017-08-13 16:40 | NUR ---
[email or web address] NOTIFIED. THEY STATED THEY WOULD BE HERE IN 2 HOURS FOR TRANSPORT.
--- NOTE | 2017-08-13 21:30 | NUR ---
08/13/172009 PT DISCHARGED VIA STRETCHER TO [facility] SERVICE PAPERWORK GIVEN.CC
== END 2017-08-13 20:10 | DRG 166 ==
LOC: ICU 10:24 → MED/SURG 08-06 14:32
PROVIDERS: Emergency Medicine; Family Medicine; Nurse Practitioner Family; Specialist
PROC: 0BC78ZZ Extirpation of Matter from Left Main Bronchus, Via Natural or Artificial Opening Endoscopic (ICD-10-PCS; principal; 2017-07-26)
PROC: 0B9J8ZX Drainage of Left Lower Lung Lobe, Via Natural or Artificial Opening Endoscopic, Diagnostic (ICD-10-PCS; 2017-07-26)
PROC: 30233N1 Transfusion of Nonautologous Red Blood Cells into Peripheral Vein, Percutaneous Approach (ICD-10-PCS; 2017-08-04)
PROC: 0DH63UZ Insertion of Feeding Device into Stomach, Percutaneous Approach (ICD-10-PCS; 2017-08-08)
DX: J96.01 Acute respiratory failure with hypoxia (principal); J18.8 Other pneumonia, unspecified organism; K21.9 Gastro-esophageal reflux disease without esophagitis; K59.09 Other constipation; R13.19 Other dysphagia; I95.89 Other hypotension; F20.89 Other schizophrenia; D64.89 Other specified anemias; E46 Unspecified protein-calorie malnutrition; T17.590A Other foreign object in bronchus causing asphyxiation, initial encounter; D69.6 Thrombocytopenia, unspecified; F23 Brief psychotic disorder; F79 Unspecified intellectual disabilities; D72.828 Other elevated white blood cell count; E87.6 Hypokalemia; R06.09 Other forms of dyspnea
CPT/HCPCS: 36415; 36430; 36600; 51702; 80048; 80053; 80164; 80202; 81000; 82607; 82746; 82805; 82948; 82962; 83010; 83036; 83605; 83735; 83880; 84100; 84134; 84439; 84443; 85007; 85027; 85044; 85362; 85379; 85384; 86140; 86592; 86850; 86900; 86901; 86922; 87040; 87070; 87077; 87081; 87185; 87186; 87205; 87899; 93005; 94640; 94664; 94668; 94760; 96372; C1726; J0515; J1200; J1450; J1630; J1650; J1815; J1885; J1940; J1956; J2001; J2060; J2175; J2250; J2405; J2704; J2794; J2920; J2930; J3010; J3475; J3480; J3490; J7060; P9016; Q9963

== ENCOUNTER 2017-10-31 17:13 | Emergency (ER) | payer OTHER ==
[~2017-10-31] VITALS: Ht 162.6 cm; Wt 45.4 kg
[~2017-10-31 17:13] MED LIST changes: +ALUMSUS6 PO; +BENZTROPINE2 MG PEG; -BENZTROPINE2 MG PO; +DOCU100C10 PEG; +LANTISEPTI2 EX; +LEXAPRO20 MG PEG; -LEXAPRO20 MG PO; +MAGNSUS68 PEG; -MAGNSUS68 PO; +MEGE40TA32 PEG; -MEGE40TA32 PO; +METAMUCIL0.52 GM OR; +NUDEXTA PEG; -NUDEXTA PO; +OLAN10INJ IM; +PANTOPRAZOLE 40MG TA PO; +SUCR1SUS PEG; -SUCR1SUS PO; +TYLENOL325 MG OR
[2017-10-31 19:37] LABS: PLATELET COUNT 190 K/uL (152-353)
[2017-10-31 19:41] LABS: POTASSIUM 3.5 mmol/L (3.6-5.2)
[2017-10-31 21:33] VITALS: BP 101/61; TEMP 97.8
[2017-10-31] MEDS ORDERED: OMEPRAZOLE20 M1 PEG (22:34)
[2017-10-31] MEDS ORDERED: ZINC SULFATE220 M1 PEG (22:36)
[2017-10-31] MEDS ORDERED: LORA0.5T17 PO (22:44)
[2017-10-31] MEDS ORDERED: VALP250S3 PEG (22:53)
[2017-10-31] MEDS ORDERED: ASCO500T18 PEG (22:55)
[2017-10-31] MEDS ORDERED: MULTIVITAMIN PEG (23:01)
[2017-10-31] MEDS ORDERED: SOAP SUDS ENEMA RE (23:11)
== END 2017-10-31 21:35 | disposition other institution (70) ==
LOC: ED 17:13
PROVIDERS: Family Medicine
DX: E87.6 Hypokalemia (principal); Z04.6 Encounter for general psychiatric examination, requested by authority
CPT/HCPCS: 80048; 81000; 85027; 93005; 99283